=== PATIENT | female | born 1995 | race Caucasian/White ===

== ENCOUNTER 2016-11-18 19:08 | Emergency (ER) | payer OTHER ==
--- NOTE | 2016-11-18 19:50 | EDM.PDOC ---
ED HPI Trauma - General Chief Complaint: Lower Extremity Injury/Pain Stated Complaint: PT HURT RT LEG Time Seen by Provider: 11/18/16 19:42 - History of Present Illness INITIAL COMMENTS - FREE TEXT/NARRATIVE: HISTORY AND PHYSICAL: History of present illness: The patient is a 21-year-old female who presents with right leg pain that started yesterday while she was working. 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 She's it is mostly centered around her anterior right knee but also travels up the medial thigh and down the calf. Patient says that she has not noticed any redness or swelling to the leg she has had no systemic complaints of fever chills chest pain shortness of breath vomiting or diarrhea. Patient is not a smoker but she does take oral control. Patient denies any sedentary behavior. Review of systems: As per history of present illness and below otherwise all systems reviewed and negative. Past medical history: As per history of present illness and as reviewed below otherwise noncontributory. Surgical history: As per history of present illness and as reviewed below otherwise noncontributory. Social history: No reported history of drug or alcohol abuse. Family history: As per history of present illness and as reviewed below otherwise noncontributory. Physical exam: General: Well-developed well-nourished female who is overweight and nontoxic appearing vital signs of been reviewed by me HEENT: Atraumatic, normocephalic, negative for conjunctival pallor or scleral icterus, mucous membranes moist, throat clear, neck supple, nontender, trachea midline. Lungs: Clear to auscultation, breath sounds equal bilaterally, chest nontender. Heart: S1S2, regular, negative for clicks, rubs, or JVD. Abdomen: Soft, nondistended, nontender. NABS Pelvis: Stable nontender. Genitourinary: Deferred. Rectal: Deferred. Extremities: Atraumatic, no pedal edema or leg asymmetry but there is some tenderness at palpation of the anterior right knee without any joint effusion warmth or erythema, legs are negative for cords or calf pain. Neurovascular unremarkable. There is some diffuse anterior thigh discomfort soft tissue palpation but again no palpable masses are appreciated or cords. There is no bony hip ankle or foot tenderness at all the joints are without tenderness swelling or deformities Neuro: Awake, alert, oriented. Cranial nerves II through XII unremarkable. Cerebellum unremarkable. Motor and sensory unremarkable throughout. Exam nonfocal. Diagnostics: X-ray right knee, Doppler ultrasound of right leg Therapeutics: Toradol Impression: Right leg/knee pain stable Definitive disposition and diagnosis as appropriate pending reevaluation and review of above. Allergies/ADRs: Allergies No Known Allergies Allergy (Verified 11/18/16 19:24) Home Medications: Ambulatory Orders . 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 Musculoskeletal History: Reports: None Neurological History: Reports: None Psychiatric History: Reports: None Endocrine/Metabolic History: Reports: None Hematologic History: Reports: None Immunologic History: Reports: None Oncologic (Cancer) History: Reports: None Dermatologic History: Reports: None - Infectious Disease History Infectious Disease History: Reports: None - Past Surgical History Head Surgeries/Procedures: Reports: None HEENT Surgical History: Reports: Oral surgery Social & Family History - Family History Family Medical History: Noncontributory Endocrine/Metabolic: Reports: Diabetes, type II - Tobacco Use Smoking Status *Q: Never Smoker Second Hand Smoke Exposure: No - Caffeine Use Caffeine Use: Reports: Coffee - Alcohol Use Days Per Week of Alcohol Use: 0 - Recreational Drug Use Recreational Drug Use: No - Living Situation & Occupation Living situation: Reports: with significant other Occupation: employed Review of Systems - Review of Systems Review Of Systems: ROS reveals no pertinent complaints other than HPI. Trauma Exam - Physical Exam Exam: See Below (See dictation) Course - Vital Signs Last Recorded V/S: Last Vital Signs Temp 36.4 C 11/18/16 19:25 Pulse 94 11/18/16 19:25 Resp 16 11/18/16 19:25 BP 116/62 11/18/16 19:25 Pulse Ox 96 11/18/16 19:25 - Orders/Labs/Meds Orders: Active Orders 24 hr Category Date Time Status Knee 3V Rt [CR] Stat Exams 11/18/16 19:46 Taken Venous Doppler Lwr Ext Rt [US] Stat Exams 11/18/16 19:46 Taken Meds: Medications Discontinued Medications Generic Name Dose Route Start Last Admin Trade Name Casimiro PRN Reason Stop Dose Admin Ketorolac Tromethamine 60 mg 11/18/16 19:46 11/18/16 19:56 Toradol IM 11/18/16 19:47 60 mg ONETIME ONE Administration Departure - Departure Time of Disposition: 21:43 Disposition: Home, Self-Care 01 Condition: good Clinical Impression: Pain of right knee and lower leg Forms: ED Department Discharge Additional Instructions: The following information is given to patients seen in the emergency department who are being discharged to home. This information is to outline your options for follow-up care. We provide all patients seen in our emergency department with a follow-up referral. The need for follow-up, as well as the timing and circumstances, are variable depending upon the specifics of your emergency department visit. If you don't have a primary care physician on staff, we will provide you with a referral. We always advise you to contact your personal physician following an emergency department visit to inform them of the circumstance of the visit and for follow-up with them and/or the need for any referrals to a consulting specialist. The emergency department will also refer you to a specialist when appropriate. This referral assures that you have the opportunity for followup care with a specialist. All of these measure are taken in an effort to provide you with optimal care, which includes your followup. Under all circumstances we always encourage you to contact your private physician who remains a resource for coordinating your care. When calling for followup care, please make the office aware that this follow-up is from your recent emergency room visit. If for any reason you are refused follow-up, please contact the [facility] emergency department at and ask to speak to the emergency department charge nurse. [facility] Primary care- Internal Medicine and Family [facility] [address] [place] [id number] [facility] Specialty Care--Orthopedic clinic Professional Building [address] [place] [id number] Ice and elevate after work, use ibuprofen/Motrin for pain and please call and followup. Return here as needed and as discussed - My Orders Last 24 Hours: My Active Orders 11/18/16 19:46 Knee 3V Rt [CR] Stat Venous Doppler Lwr Ext Rt [US] Stat - Assessment/Plan Last 24 Hours: My Active Orders 11/18/16 19:46 Knee 3V Rt [CR] Stat Venous Doppler Lwr Ext Rt [US] Stat
[2016-11-18] MEDS: Ketorolac 60 MG/2 ML SDV IM ONE (19:56)
[2016-11-18 23:07] VITALS: BP 125/72
--- NOTE | 2016-11-19 14:09 | US ---
EXAM DATE: 11/18/16 PATIENT'S AGE: 21 Patient: DARIN JONES Facility: [place], [place] Site . Site : 1995 Study: US Extremity Right [id number]/16/2017 8:55:43 PM Ordering Physician: Mandy Marquez Final Report: INDICATION: Right leg pain and swelling COMPARISON: None. TECHNIQUE: A compression venous ultrasound exam was performed of the right lower extremity using owen-scale imaging, color Doppler and spectral Doppler analysis. FINDINGS: Sonographic imaging of the right lower extremity demonstrates normal compressibility and color Doppler venous blood flow within the common femoral vein, deep femoral vein, and the proximal greater saphenous vein. Within the thigh, the femoral vein is patent and compressible. At a lower level, the popliteal and posterior tibial veins also show normal compressibility and color Doppler venous blood flow. IMPRESSION: Normal venous ultrasound exam. No evidence of deep vein thrombosis within the right lower extremity. Dictated by Vipul Tai MD @ Nov 18 2016 8:55PM (Electronic Signature) Report Signed by Proxy and Original Signed Document filed in the Medical Record. CYRILD
--- NOTE | 2016-11-19 14:10 | CR ---
EXAM DATE: 11/18/16 PATIENT'S AGE: 21 Patient: DARIN JONES Facility: [place], [place] Site . Site : 1995 Study: XRay Knee Right [id number]/16/2017 8:56:01 PM Ordering Physician: Mandy Marquez Final Report: INDICATION: Right knee pain COMPARISON: none TECHNIQUE: Three-view right knee FINDINGS: The bones are anatomically aligned. There is no evidence of fracture, erosion or intrinsic bone lesion. The soft tissues appear normal. IMPRESSION: Negative right knee. Dictated by Vipul Tai MD @ Nov 18 2016 8:58PM (Electronic Signature) Report Signed by Proxy and Original Signed Document filed in the Medical Record. MTDD
== END 2016-11-18 22:15 | disposition home or self-care (01) ==
LOC: MW.ED 19:08
DX: M25.561 Pain in right knee (principal); Z98.890 Other specified postprocedural states
CPT/HCPCS: 73562; 93971; 96374; 99284; J1885; 99283

== ENCOUNTER → 2016-12-03 | Outpatient (CLI) | payer MEDICAID | LOC: MW.CHOBGYN 10:01 | PROVIDERS: ATTEND Nurse Practitioner Women's Health | DX: Z11.3 Encounter for screening for infections with a predominantly sexual mode of transmission (principal) | CPT/HCPCS: 36415; 86592; 87389; 87491; 87591 ==

== ENCOUNTER 2017-03-07 15:27 | Emergency (ER) | payer MEDICAID ==
[2017-03-07] MEDS ORDERED: Sodium Chloride 0.9% 1,000 ML IV ONE (16:55)
[2017-03-07] MEDS ORDERED: Ketorolac 30 MG/ML SDV IVPUSH ONE (16:55)
--- NOTE | 2017-03-07 17:34 | EDM.PDOC ---
ED HPI GENERAL MEDICAL PROBLEM - General Chief Complaint: Abdominal Pain Stated Complaint: ABDOMINAL PAIN Time Seen by Provider: 03/07/17 17:33 Source of Information: Reports: Patient History Limitations: Reports: No Limitations - History of Present Illness INITIAL COMMENTS - FREE TEXT/NARRATIVE: History of present illness: [21-year-old female comes in complaining of lower abdominal pain. Patient indicates that she does have unprotected sex but does not feel she is . Patient indicates that the pain has gotten progressively worse over last 3 weeks thought it was due to her menstrual cycle but that has completed and the pain continues unabated comes in today for further evaluation and workup.] Review of systems: As per history of present illness and below otherwise all systems reviewed and negative. Past medical history: As per history of present illness and as reviewed below otherwise noncontributory. Surgical history: As per history of present illness and as reviewed below otherwise noncontributory. Social history: No reported history of drug or alcohol abuse. Family history: As per history of present illness and as reviewed below otherwise noncontributory. Physical exam: HEENT: Atraumatic, normocephalic, pupils reactive, negative for conjunctival pallor or scleral icterus, mucous membranes moist, throat clear, neck supple, nontender, trachea midline. Lungs: Clear to auscultation, breath sounds equal bilaterally, chest nontender. Heart: S1S2, regular, negative for clicks, rubs, or JVD. Abdomen: Protuberant soft distended abdomen with low suprapubic tenderness. Negative for masses or hepatosplenomegaly. Negative for costovertebral tenderness. Pelvis: Stable nontender. Genitourinary: Deferred. Rectal: Deferred. Extremities: Atraumatic, negative for cords or calf pain. Neurovascular unremarkable. Neuro: Awake, alert, oriented. Cranial nerves II through XII unremarkable. Cerebellum unremarkable. Motor and sensory unremarkable throughout. Exam nonfocal. Diagnostics: [Urine , UA, CBC, CMP] Therapeutics: [Toradol] Impression: [Constipation] Plan: [Mag citrate] Definitive disposition and diagnosis as appropriate pending reevaluation and review of above. Lower Abdominal Pain Score (Numeric/FACES): 8 - Related Data Allergies Allergy/AdvReac Type Severity Reaction Status Date / Time No Known Allergies Allergy Verified 03/07/17 16:02 Home Meds: Home Meds . 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 Musculoskeletal History: Reports: None Neurological History: Reports: None Psychiatric History: Reports: None Endocrine/Metabolic History: Reports: None Hematologic History: Reports: None Immunologic History: Reports: None Oncologic (Cancer) History: Reports: None Dermatologic History: Reports: None - Infectious Disease History Infectious Disease History: Reports: Influenza - Past Surgical History Head Surgeries/Procedures: Reports: None HEENT Surgical History: Reports: Oral Surgery Social & Family History - Family History Family Medical History: Noncontributory Endocrine/Metabolic: Reports: Diabetes, type II - Tobacco Use Smoking Status *Q: Never Smoker Second Hand Smoke Exposure: No - Caffeine Use Caffeine Use: Reports: Coffee - Alcohol Use Days Per Week of Alcohol Use: 0 - Recreational Drug Use Recreational Drug Use: No - Living Situation & Occupation Living situation: Reports: with Significant Other Occupation: Employed ED ROS GENERAL - Review of Systems Review Of Systems: See Below (The history of present illness) ED EXAM, GI/ABD - Physical Exam Exam: See Below (History of present illness) Course - Vital Signs Last Recorded V/S: Last Vital Signs Temp 36.4 C 03/07/17 16:03 Pulse 77 03/07/17 16:03 Resp 16 03/07/17 16:03 BP 130/67 03/07/17 16:03 Pulse Ox 98 03/07/17 16:03 - Orders/Labs/Meds Orders: Active Orders 24 hr Category Date Time Status Abdomen 1V Upright [CR] Stat Exams 03/07/17 18:26 Ordered Labs: Laboratory Tests 03/07/17 03/07/17 03/07/17 Range/Units 16:10 16:10 17:17 WBC 9.21 (4.0-11.0) K/uL RBC 4.10 L (4.30-5.90) M/uL Hgb 12.2 (12.0-16.0) g/dL Hct 36.9 (36.0-46.0) % MCV 90.0 (80.0-98.0) fL MCH 29.8 (27.0-32.0) pg MCHC 33.1 (31.0-37.0) g/dL RDW Std Deviation 40.7 (28.0-62.0) fl RDW Coeff of Jr 13 (11.0-15.0) % Plt Count 352 (150-400) K/uL MPV 9.30 (7.40-12.00) fL Neut % (Auto) 48.4 (48.0-80.0) % Lymph % (Auto) 44.4 H (16.0-40.0) % Garrard % (Auto) 5.9 (0.0-15.0) % Eos % (Auto) 1.0 (0.0-7.0) % Baso % (Auto) 0.3 (0.0-1.5) % Neut # (Auto) 4.5 (1.4-5.7) K/uL Lymph # (Auto) 4.1 H (0.6-2.4) K/uL Garrard # (Auto) 0.5 (0.0-0.8) K/uL Eos # (Auto) 0.1 (0.0-0.7) K/uL Baso # (Auto) 0.0 (0.0-0.1) K/uL Nucleated RBC % 0.0 /100WBC Nucleated RBCs # 0 K/uL Sodium (136-146) mmol/L Potassium (3.5-5.1) mmol/L Chloride (98-110) mmol/L Carbon Dioxide (21-31) mmol/L BUN (6.0-23.0) mg/dL Creatinine (0.6-1.5) mg/dL Est Cr Clr Drug Dosing mL/min Estimated GFR (MDRD) ml/min Glucose (60-110) mg/dL Calcium (8.8-10.8) mg/dL Total Bilirubin (0.1-1.5) mg/dL AST (5-40) IU/L ALT (8-54) IU/L Alkaline Phosphatase (40-150) Total Protein (6.0-8.0) g/dL Albumin (3.5-5.0) g/dL Globulin (2.0-3.5) g/dL Albumin/Globulin Ratio (1.3-2.8) Amylase (10-90) U/L Lipase (7-80) U/L Urine Color YELLOW Urine Appearance CLEAR Urine pH 6.0 (5.0-8.0) Ur Specific Harper 1.025 (1.001-1.035) Urine Protein NEGATIVE (NEGATIVE) mg/dL Urine Glucose (UA) NEGATIVE (NEGATIVE) mg/dL Urine Ketones NEGATIVE (NEGATIVE) mg/dL Urine Occult Blood TRACE-INTACT (NEGATIVE) Urine Nitrite NEGATIVE (NEGATIVE) Urine Bilirubin NEGATIVE (NEGATIVE) Urine Urobilinogen 0.2 (<2.0) EU/dL Ur Leukocyte Esterase NEGATIVE (NEGATIVE) Urine RBC 0-2 (0-2/HPF) Urine WBC 0-1 (0-5/HPF) Ur Epithelial Cells OCCASIONAL (NONE-FEW) Urine Bacteria FEW (NEGATIVE) Urine Mucus LIGHT (NONE-MOD) Urine HCG, Qual NEGATIVE (NEGATIVE) 03/07/17 Range/Units 17:17 WBC (4.0-11.0) K/uL RBC (4.30-5.90) M/uL Hgb (12.0-16.0) g/dL Hct (36.0-46.0) % MCV (80.0-98.0) fL MCH (27.0-32.0) pg MCHC (31.0-37.0) g/dL RDW Std Deviation (28.0-62.0) fl RDW Coeff of Jr (11.0-15.0) % Plt Count (150-400) K/uL MPV (7.40-12.00) fL Neut % (Auto) (48.0-80.0) % Lymph % (Auto) (16.0-40.0) % Garrard % (Auto) (0.0-15.0) % Eos % (Auto) (0.0-7.0) % Baso % (Auto) (0.0-1.5) % Neut # (Auto) (1.4-5.7) K/uL Lymph # (Auto) (0.6-2.4) K/uL Garrard # (Auto) (0.0-0.8) K/uL Eos # (Auto) (0.0-0.7) K/uL Baso # (Auto) (0.0-0.1) K/uL Nucleated RBC % /100WBC Nucleated RBCs # K/uL Sodium 138 (136-146) mmol/L Potassium 4.0 (3.5-5.1) mmol/L Chloride 106 (98-110) mmol/L Carbon Dioxide 22 (21-31) mmol/L BUN 13 (6.0-23.0) mg/dL Creatinine 0.7 (0.6-1.5) mg/dL Est Cr Clr Drug Dosing 128.24 mL/min Estimated GFR (MDRD) > 60.0 ml/min Glucose 79 (60-110) mg/dL Calcium 9.9 (8.8-10.8) mg/dL Total Bilirubin 0.2 (0.1-1.5) mg/dL AST 16 (5-40) IU/L ALT 10 (8-54) IU/L Alkaline Phosphatase 93 (40-150) Total Protein 8.2 H (6.0-8.0) g/dL Albumin 4.2 (3.5-5.0) g/dL Globulin 4.0 H (2.0-3.5) g/dL Albumin/Globulin Ratio 1.1 L (1.3-2.8) Amylase 67 (10-90) U/L Lipase 25 (7-80) U/L Urine Color Urine Appearance Urine pH (5.0-8.0) Ur Specific Harper (1.001-1.035) Urine Protein (NEGATIVE) mg/dL Urine Glucose (UA) (NEGATIVE) mg/dL Urine Ketones (NEGATIVE) mg/dL Urine Occult Blood (NEGATIVE) Urine Nitrite (NEGATIVE) Urine Bilirubin (NEGATIVE) Urine Urobilinogen (<2.0) EU/dL Ur Leukocyte Esterase (NEGATIVE) Urine RBC (0-2/HPF) Urine WBC (0-5/HPF) Ur Epithelial Cells (NONE-FEW) Urine Bacteria (NEGATIVE) Urine Mucus (NONE-MOD) Urine HCG, Qual (NEGATIVE) Meds: Medications Discontinued Medications Generic Name Dose Route Start Last Admin Trade Name Freq PRN Reason Stop Dose Admin Sodium Chloride 1,000 mls @ 999 mls/hr 03/07/17 16:55 03/07/17 17:16 Normal Saline IV 03/07/17 17:55 Not Given STAT ONE Ketorolac Tromethamine 30 mg 03/07/17 16:55 03/07/17 17:16 Toradol IVPUSH 03/07/17 16:56 Not Given ONETIME ONE Departure - Departure Time of Disposition: 19:28 Disposition: Home, Self-Care 01 Condition: Good Clinical Impression: Abdominal pain - Discharge Information Forms: ED Department Discharge Additional Instructions: The following information is given to patients seen in the emergency department who are being discharged to home. This information is to outline your options for follow-up care. We provide all patients seen in our emergency department with a follow-up referral. The need for follow-up, as well as the timing and circumstances, are variable depending upon the specifics of your emergency department visit. If you don't have a primary care physician on staff, we will provide you with a referral. We always advise you to contact your personal physician following an emergency department visit to inform them of the circumstance of the visit and for follow-up with them and/or the need for any referrals to a consulting specialist. The emergency department will also refer you to a specialist when appropriate. This referral assures that you have the opportunity for follow-up care with a specialist. All of these measure are taken in an effort to provide you with optimal care, which includes your follow-up. Under all circumstances we always encourage you to contact your private physician who remains a resource for coordinating your care. When calling for follow-up care, please make the office aware that this follow-up is from your recent emergency room visit. If for any reason you are refused follow-up, please contact the [facility] Emergency Department at and asked to speak to the emergency department charge nurse. Take medication as directed Follow-up with PCP in 1-2 days Return to ED as needed as discussed [facility] Primary Care [address] [place] [phone] - My Orders Last 24 Hours: My Active Orders 03/07/17 18:26 Abdomen 1V Upright [CR] Stat - Assessment/Plan Last 24 Hours: My Active Orders 03/07/17 18:26 Abdomen 1V Upright [CR] Stat
[2017-03-07 18:12] LABS: CHLORIDE,CL 106 mmol/L (98-110); SODIUM,NA 138 mmol/L (136-146)
[2017-03-07 19:36] VITALS: BP 125/72
--- NOTE | 2017-03-09 14:36 | CR ---
EXAM DATE: 03/07/17 PATIENT'S AGE: 21 Patient: ORAL JONES Facility: [place], [place] Site . Site : 1995 Study: XRay Abdomen [id number]/3/2017 7:01:44 PM Ordering Physician: Doctor Carpio Final Report: INDICATION: Abdominal pain, upper pelvic region. TECHNIQUE: 2 upright AP views of the abdomen. IMPRESSION : The bowel gas pattern is nonobstructive. Mild volume of colonic stool. No pathologic abdominal calcifications. Dictated by Max Garcia MD @ 03/07/2017 7:24:44 PM Dictated by: Max Garcia MD @ 03/07/2017 19:24:52 (Electronic Signature) Report Signed by Proxy. ALESSIA
== END 2017-03-07 19:36 | disposition home or self-care (01) ==
LOC: MW.ED 15:27
DX: K59.00 Constipation, unspecified (principal)
CPT/HCPCS: 36415; 74000; 74000-26; 80053; 81001; 81025; 82150; 83690; 85025; 99282; 99283

== ENCOUNTER 2017-03-15 22:54 | Emergency (ER) | payer MEDICAID ==
[2017-03-16 00:29] LABS: CHLORIDE,CL 106 mmol/L (98-110); SODIUM,NA 138 mmol/L (136-146)
--- NOTE | 2017-03-16 01:23 | EDM.PDOC ---
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 Stated Complaint: ABDOMINAL PAIN Time Seen by Provider: 03/16/17 01:21 Source of Information: Reports: Patient - History of Present Illness INITIAL COMMENTS - FREE TEXT/NARRATIVE: HISTORY AND PHYSICAL: History of present illness: She presents with complaint of abdominal pain however after further questioning she is concerned about as she has had 2 positive home results, she is requesting an ultrasound On our testing she is hCG negative, she is not in any pain she is lying in bed comfortably sleeping with benign abdominal exam denies any vaginal bleeding fluid leak which low back pain no fever nausea vomiting chills sweats LMP 02/27/2017 Review of systems: As per history of present illness and below otherwise all systems reviewed and negative. Past medical history: As per history of present illness and as reviewed below otherwise noncontributory. Surgical history: As per history of present illness and as reviewed below otherwise noncontributory. Social history: No reported history of drug or alcohol abuse. Family history: As per history of present illness and as reviewed below otherwise noncontributory. Physical exam: HEENT: Atraumatic, normocephalic, pupils reactive, negative for conjunctival pallor or scleral icterus, mucous membranes moist, throat clear, neck supple, nontender, trachea midline. Lungs: Clear to auscultation, breath sounds equal bilaterally, chest nontender. Heart: S1S2, regular, negative for clicks, rubs, or JVD. Abdomen: Soft, nondistended, nontender. Negative for masses or hepatosplenomegaly. Negative for costovertebral tenderness. Pelvis: Stable nontender. Genitourinary: Deferred. Rectal: Deferred. Extremities: Atraumatic, negative for cords or calf pain. Neurovascular unremarkable. Neuro: Awake, alert, oriented. Cranial nerves II through XII unremarkable. Cerebellum unremarkable. Motor and sensory unremarkable throughout. Exam nonfocal. Diagnostics: []CBC, CMP, UA, hCG quantitative and qualitative. negative Therapeutics: []None Impression: []Worried well Non Definitive disposition and diagnosis as appropriate pending reevaluation and review of above. Lower Abdomen Pain Score (Numeric/FACES): 10 - Related Data Allergies Allergy/AdvReac Type Severity Reaction Status Date / Time No Known Allergies Allergy Verified 03/15/17 23:28 Home Meds: Home Meds . 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 Musculoskeletal History: Reports: None Neurological History: Reports: None Psychiatric History: Reports: None Endocrine/Metabolic History: Reports: None Hematologic History: Reports: None Immunologic History: Reports: None Oncologic (Cancer) History: Reports: None Dermatologic History: Reports: None - Infectious Disease History Infectious Disease History: Reports: Influenza - Past Surgical History Head Surgeries/Procedures: Reports: None HEENT Surgical History: Reports: Oral Surgery Social & Family History - Family History Family Medical History: Noncontributory Endocrine/Metabolic: Reports: Diabetes, type II - Tobacco Use Smoking Status *Q: Never Smoker Second Hand Smoke Exposure: No - Caffeine Use Caffeine Use: Reports: Coffee - Alcohol Use Days Per Week of Alcohol Use: 1 Number of Drinks Per Day: 2 Total Drinks Per Week: 2 - Recreational Drug Use Recreational Drug Use: No - Living Situation & Occupation Living situation: Reports: with Significant Other Occupation: Employed ED ROS GENERAL - Review of Systems Review Of Systems: ROS reveals no pertinent complaints other than HPI. ED EXAM, GENERAL - Physical Exam Exam: See Below Course - Vital Signs Last Recorded V/S: Last Vital Signs Temp 36.1 C 03/15/17 23:24 Pulse 86 03/16/17 00:42 Resp 18 03/16/17 00:42 BP 123/67 03/16/17 00:42 Pulse Ox 100 03/16/17 00:42 - Orders/Labs/Meds Labs: Laboratory Tests 03/15/17 03/15/17 03/15/17 Range/Units 23:30 23:39 23:39 WBC 9.51 (4.0-11.0) K/uL RBC 3.77 L (4.30-5.90) M/uL Hgb 11.3 L (12.0-16.0) g/dL Hct 34.1 L (36.0-46.0) % MCV 90.5 (80.0-98.0) fL MCH 30.0 (27.0-32.0) pg MCHC 33.1 (31.0-37.0) g/dL RDW Std Deviation 41.6 (28.0-62.0) fl RDW Coeff of Jr 13 (11.0-15.0) % Plt Count 338 (150-400) K/uL MPV 9.10 (7.40-12.00) fL Neut % (Auto) 51.1 (48.0-80.0) % Lymph % (Auto) 41.2 H (16.0-40.0) % [place] % (Auto) 6.3 (0.0-15.0) % Eos % (Auto) 1.2 (0.0-7.0) % Baso % (Auto) 0.2 (0.0-1.5) % Neut # (Auto) 4.9 (1.4-5.7) K/uL Lymph # (Auto) 3.9 H (0.6-2.4) K/uL [place] # (Auto) 0.6 (0.0-0.8) K/uL Eos # (Auto) 0.1 (0.0-0.7) K/uL Baso # (Auto) 0.0 (0.0-0.1) K/uL Nucleated RBC % 0.0 /100WBC Nucleated RBCs # 0 K/uL Sodium 138 (136-146) mmol/L Potassium 4.0 (3.5-5.1) mmol/L Chloride 106 (98-110) mmol/L Carbon Dioxide 26 (21-31) mmol/L BUN 16 (6.0-23.0) mg/dL Creatinine 0.8 (0.6-1.5) mg/dL Est Cr Clr Drug Dosing 112.21 mL/min Estimated GFR (MDRD) > 60.0 ml/min Glucose 109 (60-110) mg/dL Calcium 9.3 (8.8-10.8) mg/dL Total Bilirubin 0.2 (0.1-1.5) mg/dL AST 14 (5-40) IU/L ALT 10 (8-54) IU/L Alkaline Phosphatase 77 (40-150) Total Protein 7.3 (6.0-8.0) g/dL Albumin 3.9 (3.5-5.0) g/dL Globulin 3.4 (2.0-3.5) g/dL Albumin/Globulin Ratio 1.2 L (1.3-2.8) HCG, Qual (NEG) HCG, Quant mIU/mL Urine Color YELLOW Urine Appearance CLEAR Urine pH 7.0 (5.0-8.0) Ur Specific [place] 1.015 (1.001-1.035) Urine Protein NEGATIVE (NEGATIVE) mg/dL Urine Glucose (UA) NEGATIVE (NEGATIVE) mg/dL Urine Ketones NEGATIVE (NEGATIVE) mg/dL Urine Occult Blood NEGATIVE (NEGATIVE) Urine Nitrite NEGATIVE (NEGATIVE) Urine Bilirubin NEGATIVE (NEGATIVE) Urine Urobilinogen 0.2 (<2.0) EU/dL Ur Leukocyte Esterase NEGATIVE (NEGATIVE) Urine RBC 0-1 (0-2/HPF) Urine WBC 0-1 (0-5/HPF) Ur Epithelial Cells FEW (NONE-FEW) Urine Bacteria FEW (NEGATIVE) Blood Type 03/15/17 03/15/17 03/15/17 Range/Units 23:39 23:39 23:45 WBC (4.0-11.0) K/uL RBC (4.30-5.90) M/uL Hgb (12.0-16.0) g/dL Hct (36.0-46.0) % MCV (80.0-98.0) fL MCH (27.0-32.0) pg MCHC (31.0-37.0) g/dL RDW Std Deviation (28.0-62.0) fl RDW Coeff of Jr (11.0-15.0) % Plt Count (150-400) K/uL MPV (7.40-12.00) fL Neut % (Auto) (48.0-80.0) % Lymph % (Auto) (16.0-40.0) % [place] % (Auto) (0.0-15.0) % Eos % (Auto) (0.0-7.0) % Baso % (Auto) (0.0-1.5) % Neut # (Auto) (1.4-5.7) K/uL Lymph # (Auto) (0.6-2.4) K/uL [place] # (Auto) (0.0-0.8) K/uL Eos # (Auto) (0.0-0.7) K/uL Baso # (Auto) (0.0-0.1) K/uL Nucleated RBC % /100WBC Nucleated RBCs # K/uL Sodium (136-146) mmol/L Potassium (3.5-5.1) mmol/L Chloride (98-110) mmol/L Carbon Dioxide (21-31) mmol/L BUN (6.0-23.0) mg/dL Creatinine (0.6-1.5) mg/dL Est Cr Clr Drug Dosing mL/min Estimated GFR (MDRD) ml/min Glucose (60-110) mg/dL Calcium (8.8-10.8) mg/dL Total Bilirubin (0.1-1.5) mg/dL AST (5-40) IU/L ALT (8-54) IU/L Alkaline Phosphatase (40-150) Total Protein (6.0-8.0) g/dL Albumin (3.5-5.0) g/dL Globulin (2.0-3.5) g/dL Albumin/Globulin Ratio (1.3-2.8) HCG, Qual NEGATIVE (NEG) HCG, Quant < 1.2 mIU/mL Urine Color Urine Appearance Urine pH (5.0-8.0) Ur Specific [place] (1.001-1.035) Urine Protein (NEGATIVE) mg/dL Urine Glucose (UA) (NEGATIVE) mg/dL Urine Ketones (NEGATIVE) mg/dL Urine Occult Blood (NEGATIVE) Urine Nitrite (NEGATIVE) Urine Bilirubin (NEGATIVE) Urine Urobilinogen (<2.0) EU/dL Ur Leukocyte Esterase (NEGATIVE) Urine RBC (0-2/HPF) Urine WBC (0-5/HPF) Ur Epithelial Cells (NONE-FEW) Urine Bacteria (NEGATIVE) Blood Type A POSITIVE Departure - Departure Time of Disposition: 01:22 Disposition: Home, Self-Care 01 Condition: Good Clinical Impression: Encounter for medical screening examination - Discharge Information Forms: ED Department Discharge Additional Instructions: The following information is given to patients seen in the emergency department who are being discharged to home. This information is to outline your options for follow-up care. We provide all patients seen in our emergency department with a follow-up referral. The need for follow-up, as well as the timing and circumstances, are variable depending upon the specifics of your emergency department visit. If you don't have a primary care physician on staff, we will provide you with a referral. We always advise you to contact your personal physician following an emergency department visit to inform them of the circumstance of the visit and for follow-up with them and/or the need for any referrals to a consulting specialist. The emergency department will also refer you to a specialist when appropriate. This referral assures that you have the opportunity for follow-up care with a specialist. All of these measure are taken in an effort to provide you with optimal care, which includes your follow-up. Under all circumstances we always encourage you to contact your private physician who remains a resource for coordinating your care. When calling for follow-up care, please make the office aware that this follow-up is from your recent emergency room visit. If for any reason you are refused follow-up, please contact the [facility] emergency department at and asked to speak to the emergency department charge nurse.
[2017-03-16 01:39] VITALS: BP 134/87
== END 2017-03-16 01:39 | disposition home or self-care (01) ==
LOC: MW.ED 22:54
DX: Z00.00 Encounter for general adult medical examination without abnormal findings (principal); Z98.890 Other specified postprocedural states
CPT/HCPCS: 36415; 80053; 81001; 84702; 84703; 85025; 86900; 86901; 99282; 99284

== ENCOUNTER 2017-04-20 22:37 | Emergency (ER) | payer MEDICAID ==
[2017-04-20] MEDS ORDERED: Ketorolac 60 MG/2 ML SDV IM ONE (23:06)
--- NOTE | 2017-04-20 23:09 | EDM.PDOC ---
ED HPI GENERAL MEDICAL PROBLEM - General Chief Complaint: Abdominal Pain Stated Complaint: STOMACH PAIN Time Seen by Provider: 04/20/17 23:03 - History of Present Illness INITIAL COMMENTS - FREE TEXT/NARRATIVE: HISTORY AND PHYSICAL: History of present illness: Patient is 21-year-old black female presents concern of right upper quadrant abdominal pain off and on times several months this seems to be postprandial she denies any trauma fever chills nausea vomiting or other complaints. Review of systems: As per history of present illness and below otherwise all systems reviewed and negative. Past medical history: As per history of present illness and as reviewed below otherwise noncontributory. Surgical history: As per history of present illness and as reviewed below otherwise noncontributory. Social history: No reported history of drug or alcohol abuse. Family history: As per history of present illness and as reviewed below otherwise noncontributory. Physical exam: HEENT: Atraumatic, normocephalic, pupils reactive, negative for conjunctival pallor or scleral icterus, mucous membranes moist, throat clear, neck supple, nontender, trachea midline. Lungs: Clear to auscultation, breath sounds equal bilaterally, chest nontender. Heart: S1S2, regular, negative for clicks, rubs, or JVD. Abdomen: Soft, nondistended, mild tenderness in the right upper quadrant to deep palpation no rebound no guarding. Negative for masses or hepatosplenomegaly. Negative for costovertebral tenderness. Pelvis: Stable nontender. Genitourinary: Deferred. Rectal: Deferred. Extremities: Atraumatic, negative for cords or calf pain. Neurovascular unremarkable. Neuro: Awake, alert, oriented. Cranial nerves II through XII unremarkable. Cerebellum unremarkable. Motor and sensory unremarkable throughout. Exam nonfocal. Diagnostics: CBC CMP lipase hCG Therapeutics: Toradol 60 mg IM Impression: #1 chronic intermittent right upper quadrant abdominal pain rule out biliary colic Definitive disposition and diagnosis as appropriate pending reevaluation and review of above. Right Upper Abdomen Pain Score (Numeric/FACES): 9 - Related Data Allergies Allergy/AdvReac Type Severity Reaction Status Date / Time No Known Allergies Allergy Verified 03/15/17 23:28 Home Meds: Home Meds . 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 Musculoskeletal History: Reports: None Neurological History: Reports: None Psychiatric History: Reports: None Endocrine/Metabolic History: Reports: None Hematologic History: Reports: None Immunologic History: Reports: None Oncologic (Cancer) History: Reports: None Dermatologic History: Reports: None - Infectious Disease History Infectious Disease History: Reports: Influenza - Past Surgical History Head Surgeries/Procedures: Reports: None HEENT Surgical History: Reports: Oral Surgery Social & Family History - Family History Family Medical History: Noncontributory Endocrine/Metabolic: Reports: Diabetes, type II - Tobacco Use Smoking Status *Q: Never Smoker Second Hand Smoke Exposure: No - Caffeine Use Caffeine Use: Reports: Coffee - Alcohol Use Days Per Week of Alcohol Use: 1 Number of Drinks Per Day: 2 Total Drinks Per Week: 2 - Recreational Drug Use Recreational Drug Use: No - Living Situation & Occupation Living situation: Reports: with Significant Other Occupation: Employed ED ROS GENERAL - Review of Systems Review Of Systems: ROS reveals no pertinent complaints other than HPI. ED EXAM, GENERAL - Physical Exam Exam: See Below (See dictation) Course - Vital Signs Last Recorded V/S: Last Vital Signs Temp 36.6 C 04/20/17 22:49 Pulse 88 04/20/17 22:49 Resp 16 04/20/17 22:49 BP 128/69 04/20/17 22:49 Pulse Ox 99 04/20/17 22:49 - Orders/Labs/Meds Orders: Active Orders 24 hr Category Date Time Status CBC WITH AUTO DIFF [HEME] Stat Lab 04/20/17 23:05 Ordered COMPREHENSIVE METABOLIC PN,CMP [CHEM] Stat Lab 04/20/17 23:05 Ordered HCG QUALITATIVE,SERUM [CHEM] Stat Lab 04/20/17 23:06 Ordered INR,PT,PROTHROMBIN TIME [COAG] Stat Lab 04/20/17 23:05 Ordered LIPASE [CHEM] Stat Lab 04/20/17 23:05 Ordered Ketorolac [Toradol] Med 04/20/17 23:06 Once 60 mg IM ONETIME ONE Departure - Departure Time of Disposition: 23:08 Disposition: Home, Self-Care 01 Condition: Good Clinical Impression: Abdominal pain - Discharge Information Forms: ED Department Discharge Additional Instructions: The following information is given to patients seen in the emergency department who are being discharged to home. This information is to outline your options for follow-up care. We provide all patients seen in our emergency department with a follow-up referral. The need for follow-up, as well as the timing and circumstances, are variable depending upon the specifics of your emergency department visit. If you don't have a primary care physician on staff, we will provide you with a referral. We always advise you to contact your personal physician following an emergency department visit to inform them of the circumstance of the visit and for follow-up with them and/or the need for any referrals to a consulting specialist. The emergency department will also refer you to a specialist when appropriate. This referral assures that you have the opportunity for followup care with a specialist. All of these measure are taken in an effort to provide you with optimal care, which includes your followup. Under all circumstances we always encourage you to contact your private physician who remains a resource for coordinating your care. When calling for followup care, please make the office aware that this follow-up is from your recent emergency room visit. If for any reason you are refused follow-up, please contact the [facility] emergency department at and asked to speak to the emergency department charge nurse. [facility] Specialty Care - General Surgery Professional Building [address] [place] [address], [address] [place] [address] Dietary considerations as discussed avoiding fatty foods push fluids call to schedule a routine appointment with general surgery above follow private medical doctor 1-2 days and return as needed as discussed - My Orders Last 24 Hours: My Active Orders 04/20/17 23:05 CBC WITH AUTO DIFF [HEME] Stat COMPREHENSIVE METABOLIC PN,CMP [CHEM] Stat INR,PT,PROTHROMBIN TIME [COAG] Stat LIPASE [CHEM] Stat 04/20/17 23:06 HCG QUALITATIVE,SERUM [CHEM] Stat Ketorolac [Toradol] 60 mg IM ONETIME ONE - Assessment/Plan Last 24 Hours: My Active Orders 04/20/17 23:05 CBC WITH AUTO DIFF [HEME] Stat COMPREHENSIVE METABOLIC PN,CMP [CHEM] Stat INR,PT,PROTHROMBIN TIME [COAG] Stat LIPASE [CHEM] Stat 04/20/17 23:06 HCG QUALITATIVE,SERUM [CHEM] Stat Ketorolac [Toradol] 60 mg IM ONETIME ONE
[2017-04-20 23:48] LABS: CHLORIDE,CL 105 mmol/L (98-110); SODIUM,NA 137 mmol/L (136-146)
[2017-04-21 01:31] VITALS: BP 132/66
== END 2017-04-21 00:50 | disposition home or self-care (01) ==
LOC: MW.ED 22:37
DX: R10.11 Right upper quadrant pain (principal); Z98.890 Other specified postprocedural states
CPT/HCPCS: 36415; 80053; 83690; 84703; 85025; 85610; 96372; 99284; J1885; 99283

== ENCOUNTER 2017-04-26 04:13 | Emergency (ER) | payer MEDICAID ==
[2017-04-26] MEDS ORDERED: Ketorolac 30 MG/ML SDV IVPUSH ONE (04:24)
--- NOTE | 2017-04-26 04:49 | EDM.PDOC ---
[id number]: ABDOMINAL CRAMPS Time Seen by Provider: 04/26/17 04:35 - History of Present Illness INITIAL COMMENTS - FREE TEXT/NARRATIVE: HISTORY AND PHYSICAL: History of present illness: Patient 21-year-old black female presents with a concern of abdominal pain she was seen multiple times in the past for this including recently her workup thus far as been remarkable for reported gallbladder disease she states this pain is lower not in the right upper quadrant has been without associated nausea vomiting fever chills. She denies urinary symptoms denies vaginal discharge or irregular bleeding patient denies known Review of systems: As per history of present illness and below otherwise all systems reviewed and negative. Past medical history: As per history of present illness and as reviewed below otherwise noncontributory. Surgical history: As per history of present illness and as reviewed below otherwise noncontributory. Social history: No reported history of drug or alcohol abuse. Family history: As per history of present illness and as reviewed below otherwise noncontributory. Physical exam: HEENT: Atraumatic, normocephalic, pupils reactive, negative for conjunctival pallor or scleral icterus, mucous membranes moist, throat clear, neck supple, nontender, trachea midline. Lungs: Clear to auscultation, breath sounds equal bilaterally, chest nontender. Heart: S1S2, regular, negative for clicks, rubs, or JVD. Abdomen: Soft, nondistended, mild nonlocalized lower abdominal tenderness no rebound no guarding Negative for masses or hepatosplenomegaly. Negative for costovertebral tenderness. Pelvis: Stable nontender. Genitourinary: Deferred. Rectal: Deferred. Extremities: Atraumatic, negative for cords or calf pain. Neurovascular unremarkable. Neuro: Awake, alert, oriented. Cranial nerves II through XII unremarkable. Cerebellum unremarkable. Motor and sensory unremarkable throughout. Exam nonfocal. Diagnostics: CBC CMP UA hCG amylase lipase quantitative hCG pelvic ultrasound Therapeutics: To be determined Impression: #1 abdominal pain Definitive disposition and diagnosis as appropriate pending reevaluation and review of above. lower abdominal Pain Score (Numeric/FACES): 10 - Related Data Allergies Allergy/AdvReac Type Severity Reaction Status Date / Time No Known Allergies Allergy Verified 04/26/17 04:21 Home Meds: Home Meds . [No Known Home Meds] 03/15/17 [History] Past Medical History - Past Health History Medical/Surgical History: Denies Medical/Surgical History HEENT History: Reports: None Cardiovascular History: Reports: None Respiratory History: Reports: None Gastrointestinal History: Reports: None Genitourinary History: Reports: None [employer] History: Reports: None Musculoskeletal History: Reports: None Neurological History: Reports: None Psychiatric History: Reports: None Endocrine/Metabolic History: Reports: None Hematologic History: Reports: None Immunologic History: Reports: None Oncologic (Cancer) History: Reports: None Dermatologic History: Reports: None - Infectious Disease History Infectious Disease History: Reports: None - Past Surgical History Head Surgeries/Procedures: Reports: None HEENT Surgical History: Reports: Oral Surgery Social & Family History - Family History Family Medical History: Noncontributory Endocrine/Metabolic: Reports: Diabetes, type II - Tobacco Use Smoking Status *Q: Never Smoker Second Hand Smoke Exposure: No - Caffeine Use Caffeine Use: Reports: Coffee - Alcohol Use Days Per Week of Alcohol Use: 1 Number of Drinks Per Day: 2 Total Drinks Per Week: 2 - Recreational Drug Use Recreational Drug Use: No - Living Situation & Occupation Living situation: Reports: with Significant Other Occupation: Employed ED ROS GENERAL - Review of Systems Review Of Systems: ROS reveals no pertinent complaints other than HPI. ED EXAM, GENERAL - Physical Exam Exam: See Below (See dictation) Course - Vital Signs Text/Narrative:: Repeat examination is no significant interval change quantitative beta was 146 pelvic ultrasound demonstrates a cystic structure within the right adnexa of unclear etiology there is no intrauterine noted. I discussed case with [employer]ICAL [employer] SPEC on-call doctor Donn who will present to the ER for further consultation including evaluation and definitive disposition. Last Recorded V/S: Last Vital Signs Temp 36.3 C 04/26/17 08:52 Pulse 81 04/26/17 08:52 Resp 18 04/26/17 08:52 BP 146/73 H 04/26/17 08:52 Pulse Ox 99 04/26/17 08:52 - Orders/Labs/Meds Labs: Laboratory Tests 04/26/17 04/26/17 04/26/17 Range/Units 04:23 04:23 04:50 WBC 9.57 (4.0-11.0) K/uL RBC 3.98 L (4.30-5.90) M/uL Hgb 11.9 L (12.0-16.0) g/dL Hct 35.1 L (36.0-46.0) % MCV 88.2 (80.0-98.0) fL MCH 29.9 (27.0-32.0) pg MCHC 33.9 (31.0-37.0) g/dL RDW Std Deviation 41.1 (28.0-62.0) fl RDW Coeff of Jr 13 (11.0-15.0) % Plt Count 336 (150-400) K/uL MPV 9.20 (7.40-12.00) fL Neut % (Auto) 56.9 (48.0-80.0) % Lymph % (Auto) 33.9 (16.0-40.0) % [place] % (Auto) 7.8 (0.0-15.0) % Eos % (Auto) 1.1 (0.0-7.0) % Baso % (Auto) 0.3 (0.0-1.5) % Neut # (Auto) 5.4 (1.4-5.7) K/uL Lymph # (Auto) 3.2 H (0.6-2.4) K/uL [place] # (Auto) 0.8 (0.0-0.8) K/uL Eos # (Auto) 0.1 (0.0-0.7) K/uL Baso # (Auto) 0.0 (0.0-0.1) K/uL Nucleated RBC % 0.0 /100WBC Nucleated RBCs # 0 K/uL Sodium (136-146) mmol/L Potassium (3.5-5.1) mmol/L Chloride (98-110) mmol/L Carbon Dioxide (21-31) mmol/L BUN (6.0-23.0) mg/dL Creatinine (0.6-1.5) mg/dL Est Cr Clr Drug Dosing mL/min Estimated GFR (MDRD) ml/min Glucose (60-110) mg/dL Calcium (8.8-10.8) mg/dL Total Bilirubin (0.1-1.5) mg/dL AST (5-40) IU/L ALT (8-54) IU/L Alkaline Phosphatase (40-150) Total Protein (6.0-8.0) g/dL Albumin (3.5-5.0) g/dL Globulin (2.0-3.5) g/dL Albumin/Globulin Ratio (1.3-2.8) Amylase (10-90) U/L Lipase (7-80) U/L HCG, Quant mIU/mL Urine Color YELLOW Urine Appearance CLEAR Urine pH 5.5 (5.0-8.0) Ur Specific [place] 1.025 (1.001-1.035) Urine Protein NEGATIVE (NEGATIVE) mg/dL Urine Glucose (UA) NEGATIVE (NEGATIVE) mg/dL Urine Ketones TRACE H (NEGATIVE) mg/dL Urine Occult Blood NEGATIVE (NEGATIVE) Urine Nitrite NEGATIVE (NEGATIVE) Urine Bilirubin NEGATIVE (NEGATIVE) Urine Urobilinogen 0.2 (<2.0) EU/dL Ur Leukocyte Esterase NEGATIVE (NEGATIVE) Urine RBC 0-1 (0-2/HPF) Urine WBC 0-2 (0-5/HPF) Ur Epithelial Cells FEW (NONE-FEW) Urine Bacteria FEW (NEGATIVE) Urine HCG, Qual POSITIVE (NEGATIVE) 04/26/17 04/26/17 Range/Units 04:50 04:50 WBC (4.0-11.0) K/uL RBC (4.30-5.90) M/uL Hgb (12.0-16.0) g/dL Hct (36.0-46.0) % MCV (80.0-98.0) fL MCH (27.0-32.0) pg MCHC (31.0-37.0) g/dL RDW Std Deviation (28.0-62.0) fl RDW Coeff of Jr (11.0-15.0) % Plt Count (150-400) K/uL MPV (7.40-12.00) fL Neut % (Auto) (48.0-80.0) % Lymph % (Auto) (16.0-40.0) % [place] % (Auto) (0.0-15.0) % Eos % (Auto) (0.0-7.0) % Baso % (Auto) (0.0-1.5) % Neut # (Auto) (1.4-5.7) K/uL Lymph # (Auto) (0.6-2.4) K/uL [place] # (Auto) (0.0-0.8) K/uL Eos # (Auto) (0.0-0.7) K/uL Baso # (Auto) (0.0-0.1) K/uL Nucleated RBC % /100WBC Nucleated RBCs # K/uL Sodium 136 (136-146) mmol/L Potassium 3.8 (3.5-5.1) mmol/L Chloride 106 (98-110) mmol/L Carbon Dioxide 20 L (21-31) mmol/L BUN 13 (6.0-23.0) mg/dL Creatinine 0.7 (0.6-1.5) mg/dL Est Cr Clr Drug Dosing 128.24 mL/min Estimated GFR (MDRD) > 60.0 ml/min Glucose 96 (60-110) mg/dL Calcium 9.7 (8.8-10.8) mg/dL Total Bilirubin 0.4 (0.1-1.5) mg/dL AST 18 (5-40) IU/L ALT 13 (8-54) IU/L Alkaline Phosphatase 71 (40-150) Total Protein 8.4 H (6.0-8.0) g/dL Albumin 4.3 (3.5-5.0) g/dL Globulin 4.1 H (2.0-3.5) g/dL Albumin/Globulin Ratio 1.1 L (1.3-2.8) Amylase 51 (10-90) U/L Lipase 17 (7-80) U/L HCG, Quant 145.9 mIU/mL Urine Color Urine Appearance Urine pH (5.0-8.0) Ur Specific [place] (1.001-1.035) Urine Protein (NEGATIVE) mg/dL Urine Glucose (UA) (NEGATIVE) mg/dL Urine Ketones (NEGATIVE) mg/dL Urine Occult Blood (NEGATIVE) Urine Nitrite (NEGATIVE) Urine Bilirubin (NEGATIVE) Urine Urobilinogen (<2.0) EU/dL Ur Leukocyte Esterase (NEGATIVE) Urine RBC (0-2/HPF) Urine WBC (0-5/HPF) Ur Epithelial Cells (NONE-FEW) Urine Bacteria (NEGATIVE) Urine HCG, Qual (NEGATIVE) Meds: Medications Discontinued Medications Generic Name Dose Route Start Last Admin Trade Name Freq PRN Reason Stop Dose Admin Ketorolac Tromethamine 30 mg 04/26/17 04:24 04/26/17 04:51 Toradol IVPUSH 04/26/17 04:25 Not Given ONETIME ONE Departure - Departure Time of Disposition: 08:30 Disposition: Home, Self-Care 01 Clinical Impression: First trimester , Ectopic - Discharge Information Referrals: PCP,None [Primary Care Provider] - Forms: ED Department Discharge
[2017-04-26 05:21] LABS: CHLORIDE,CL 106 mmol/L (98-110); SODIUM,NA 136 mmol/L (136-146)
[2017-04-26 08:54] VITALS: BP 146/73
--- NOTE | 2017-04-26 10:51 | US ---
EXAM DATE: 04/26/17 PATIENT'S AGE: 21 Patient: DARIN JONES Facility: [place], [place] Site . Site : 1995 Study: US OB Pelvis [id number]/22/2017 6:05:47 AM Ordering Physician: Toya Matthew Final Report: INDICATION: Lower abdominal pain. Positive test. COMPARISON: none TECHNIQUE: 2D owen scale and color Doppler images were acquired of the pelvis using a transabdominal and transvaginal approach. FINDINGS: Sonographic images demonstrate a normal size and smooth outer contour of the uterus. Uterus measures 7.9 cm in length by 3.4 cm in AP diameter by 4.4 cm in transverse dimension. The myometrium has a normal uniform echotexture. The endometrial lining measures 13 mm in composite thickness and there is no evidence of an intrauterine gestational sac. There is a complex cystic structure within the right adnexa which extends along the anterior margin of the uterus. This measures 6.4 x 4.2 cm in size and there is no vascularity along the posterior margin which has slight mural thickening. The left ovary measures 3.1 x 2.4 x 2.7 cm and demonstrates normal arterial and venous blood flow on color Doppler analysis. There is a trace amount of free fluid within the dependent cul-de-sac and left adnexa. IMPRESSION: Abnormal sonogram with absence of an intrauterine gestational sac. There is a cystic structure within the right adnexa of uncertain etiology. This could reflect a potential ectopic although the lack of significant vascularity about the margins may indicate the presence of a preexisting ovarian cyst or perhaps a right-sided hydrosalpinx. Findings will require correlation with serial beta HCG measurements and potential followup sonogram. Dictated by Vipul Tai MD @ Apr 26 2017 6:28AM (Electronic Signature) Report Signed by Proxy. ALESSIA
--- NOTE | 2017-04-27 07:59 | CONS ---
DATE OF CONSULTATION: 04/26/2017 DATE OF : 1995 PRIMARY CARE PHYSICIAN: Alize PCP ER Consultation She is 21-year-old patient, and for the purpose of this consultation, I reviewed the ultrasound and reviewed the ER doctor's note. Briefly, she is a 21-year-old nulliparous. She came complaining of abdominal pain to the emergency room. She is worked up for that and test was positive. Her quantitative is low at this time. The patient does not have any spotting or bleeding, and her ultrasound shows multiple ovarian cysts. The biggest in diameter is 3 cm, and it is consistent with possible corpus luteum cyst. The patient is currently, when I saw her, she is not in pain. Her abdominal examination is benign. She had no bleeding, and based on the ultrasound findings and examination, the patient probably have early . I advised her at this time to repeat her quantitative level at 48 hours and to have followup in the office with us towards the end of this week maybe on Tuesday, and I warned her about possibility of tubal and a possibility of miscarriage, and we gave her the precautions for tubal and miscarriage. Followup examination in the office next Tuesday. CELENA / ANNE /[id number]
== END 2017-04-26 08:57 | disposition home or self-care (01) ==
LOC: MW.ED 04:13
DX: O00.90 Unspecified ectopic pregnancy without intrauterine pregnancy (principal); R10.30 Lower abdominal pain, unspecified; Z98.890 Other specified postprocedural states
CPT/HCPCS: 36415; 76801; 76801-26; 80053; 81001; 81025; 82150; 83690; 84702; 85025; 99283; 99284-25

== ENCOUNTER 2017-04-27 10:06 | Emergency (ER) | payer MEDICAID ==
--- NOTE | 2017-04-27 10:40 | EDM.PDOC ---
ED HPI GENERAL MEDICAL PROBLEM - General Chief Complaint: Abdominal Pain Stated Complaint: ABD PAIN Time Seen by Provider: 04/27/17 10:30 Source of Information: Reports: Patient History Limitations: Reports: No Limitations - History of Present Illness INITIAL COMMENTS - FREE TEXT/NARRATIVE: HISTORY AND PHYSICAL: History of present illness: [Patient comes to the emergency room with continued complaints of abdominal pain. She was evaluated in the emergency room yesterday, at which time Dr. Pop was consulted. She called his office this morning regarding continued abdominal pain and was advised to come to the ER for reevaluation. Pelvic ultrasound completed on April 26 was abnormal, questionable ectopic or cyst to right adnexal area. Her abdominal pain has not changed in location or intensity. She presents with complaints of continued abdominal pain. No fever or chills. Denies chest pain, shortness of breath and difficulty breathing. Appetite has been normal. No nausea or vomiting. Had a normal bowel movement yesterday. Has not had any constipation or diarrhea today. No burning with urination. Denies vaginal bleeding, pain, and spotting.] Review of systems: As per history of present illness and below otherwise all systems reviewed and negative. Past medical history: As per history of present illness and as reviewed below otherwise noncontributory. Surgical history: As per history of present illness and as reviewed below otherwise noncontributory. Social history: No reported history of drug or alcohol abuse. Family history: As per history of present illness and as reviewed below otherwise noncontributory. Physical exam: Gen.: Well-developed, well-nourished black female in no acute distress. HEENT: Atraumatic, normocephalic. Oral mucous membranes moist. Lungs: Clear to auscultation, breath sounds equal bilaterally. Heart: S1S2, regular rate and rhythm. No murmur gallop click or rub. Abdomen: Obese. Bowel sounds are normal throughout. Abdomen is soft and nondistended. She is tender throughout her lower abdomen. Soft, nondistended, nontender. Negative for masses, guarding or rebound. Negative for costovertebral tenderness. Pelvis: Stable nontender. Genitourinary: Deferred. Rectal: Deferred. Extremities: Atraumatic, negative for cyanosis and edema to feet and lower legs. Neurovascular unremarkable. Neuro: Awake, alert, oriented. Exam nonfocal. Diagnostics: [CBC, quantitative hCG, OB ultrasound] Impression: [First trimester ] Plan: [Dr. Pop is requested to consult patient. He came to the ER and examined patient. Patient is discharged home per Dr. Pop's disposition. Patient is instructed to follow-up for regular labs as previously instructed by Dr. Pop. Definitive disposition and diagnosis as appropriate pending reevaluation and review of above. Abdomen Pain Score (Numeric/FACES): 10 - Related Data Allergies Allergy/AdvReac Type Severity Reaction Status Date / Time No Known Allergies Allergy Verified 04/26/17 04:21 Home Meds: Home Meds . [No Known Home Meds] 03/15/17 [History] Past Medical History - Past Health History Medical/Surgical History: Denies Medical/Surgical History HEENT History: Reports: None Cardiovascular History: Reports: None Respiratory History: Reports: None Gastrointestinal History: Reports: None Genitourinary History: Reports: None ART DEPARTMENT HEAD History: Reports: None Musculoskeletal History: Reports: None Neurological History: Reports: None Psychiatric History: Reports: None Endocrine/Metabolic History: Reports: None Hematologic History: Reports: None Immunologic History: Reports: None Oncologic (Cancer) History: Reports: None Dermatologic History: Reports: None - Infectious Disease History Infectious Disease History: Reports: None - Past Surgical History Head Surgeries/Procedures: Reports: None HEENT Surgical History: Reports: Oral Surgery Social & Family History - Family History Family Medical History: Noncontributory Endocrine/Metabolic: Reports: Diabetes, type II - Tobacco Use Smoking Status *Q: Never Smoker Second Hand Smoke Exposure: No - Caffeine Use Caffeine Use: Reports: Coffee - Alcohol Use Days Per Week of Alcohol Use: 1 Number of Drinks Per Day: 2 Total Drinks Per Week: 2 - Recreational Drug Use Recreational Drug Use: No - Living Situation & Occupation Living situation: Reports: with Significant Other Occupation: Employed ED ROS GENERAL - Review of Systems Review Of Systems: ROS reveals no pertinent complaints other than HPI. ED EXAM, GI/ABD - Physical Exam Exam: See Below Course - Vital Signs Last Recorded V/S: Last Vital Signs Temp 97.8 F 04/27/17 10:15 Pulse 90 04/27/17 10:15 Resp 18 04/27/17 10:15 BP 141/85 H 04/27/17 10:15 Pulse Ox 98 04/27/17 10:15 - Orders/Labs/Meds Labs: Laboratory Tests 04/27/17 Range/Units 10:03 WBC 9.04 (4.0-11.0) K/uL RBC 4.06 L (4.30-5.90) M/uL Hgb 12.3 (12.0-16.0) g/dL Hct 35.9 L (36.0-46.0) % MCV 88.4 (80.0-98.0) fL MCH 30.3 (27.0-32.0) pg MCHC 34.3 (31.0-37.0) g/dL RDW Std Deviation 41.3 (28.0-62.0) fl RDW Coeff of Jr 13 (11.0-15.0) % Plt Count 352 (150-400) K/uL MPV 9.40 (7.40-12.00) fL Neut % (Auto) 62.3 (48.0-80.0) % Lymph % (Auto) 32.6 (16.0-40.0) % [place] % (Auto) 4.3 (0.0-15.0) % Eos % (Auto) 0.6 (0.0-7.0) % Baso % (Auto) 0.2 (0.0-1.5) % Neut # (Auto) 5.6 (1.4-5.7) K/uL Lymph # (Auto) 3.0 H (0.6-2.4) K/uL [place] # (Auto) 0.4 (0.0-0.8) K/uL Eos # (Auto) 0.1 (0.0-0.7) K/uL Baso # (Auto) 0.0 (0.0-0.1) K/uL Nucleated RBC % 0.0 /100WBC Nucleated RBCs # 0 K/uL Departure - Departure Time of Disposition: 12:00 Disposition: Home, Self-Care 01 Condition: Good Clinical Impression: First trimester - Discharge Information Referrals: PCP,None [Primary Care Provider] - Forms: ED Department Discharge Additional Instructions: The following information is given to patients seen in the emergency department who are being discharged to home. This information is to outline your options for follow-up care. We provide all patients seen in our emergency department with a follow-up referral. The need for follow-up, as well as the timing and circumstances, are variable depending upon the specifics of your emergency department visit. If you don't have a primary care physician on staff, we will provide you with a referral. We always advise you to contact your personal physician following an emergency department visit to inform them of the circumstance of the visit and for follow-up with them and/or the need for any referrals to a consulting specialist. The emergency department will also refer you to a specialist when appropriate. This referral assures that you have the opportunity for follow-up care with a specialist. All of these measure are taken in an effort to provide you with optimal care, which includes your follow-up. Under all circumstances we always encourage you to contact your private physician who remains a resource for coordinating your care. When calling for follow-up care, please make the office aware that this follow-up is from your recent emergency room visit. If for any reason you are refused follow-up, please contact the [facility] emergency department at and asked to speak to the emergency department charge nurse. [facility] Primary care - Women's Health [address] [place] [id number] Continue with regular lab draws as ordered by Dr. Pop. Follow-up at the clinic listed above on April 29. Return to ER as needed as discussed.
--- NOTE | 2017-04-27 11:14 | US ---
EXAMINATION: Transabdominal pelvic/obstetric ultrasound HISTORY: Bleeding, positive test. Beta-hCG 281. COMPARISON: 04/26/2017 TECHNIQUE: Grayscale and color Doppler images obtained of the pelvis transabdominally. FINDINGS: The uterus is normal in size, contour and echogenicity focal uterine mass. No intrauterine gestational sac identified. Endometrial stripe thickness measures approximately 1 cm. There is a small to moderate amount of free fluid noted. The previously demonstrated 6 x 4 cm right adnexal cyst is no longer characterized. The right ovary is otherwise mildly prominent in size, othe rwise unremarkable. There is mild color flow within the right ovary. Left ovary appears normal. IMPRESSION: 1. Small to moderate amount of free pelvic fluid, however the previously demonstrated right adnexal cyst is no longer appreciated and likely ruptured. 2. No intrauterine gestational sac identified, however given the beta-hCG level is a gestational sac is not yet expected. An ectopic cannot be excluded.
[2017-04-27 19:15] VITALS: BP 129/72
== END 2017-04-27 12:30 | disposition home or self-care (01) ==
LOC: MW.ED 10:06
DX: O99.89 Other specified diseases and conditions complicating pregnancy, childbirth and the puerperium (principal); R10.9 Unspecified abdominal pain; O20.0 Threatened abortion
CPT/HCPCS: 36415; 76801; 76801-26; 84702; 85025; 99283; 99284-25

== ENCOUNTER 2017-06-16 12:39 | Emergency (ER) | payer MEDICAID ==
[2017-06-16] MEDS ORDERED: Ketorolac 30 MG/ML SDV IVPUSH ONE (12:45)
[2017-06-16] MEDS ORDERED: Ondansetron 4 MG/2 ML SDV IVPUSH ONE (12:45)
[2017-06-16] MEDS ORDERED: Sodium Chloride 0.9% 1,000 ML IV ONE (12:45)
--- NOTE | 2017-06-16 12:46 | EDM.PDOC ---
ED HPI GENERAL MEDICAL PROBLEM - General Chief Complaint: Abdominal Pain Stated Complaint: ABDOMINAL PAIN Time Seen by Provider: 06/16/17 12:46 Source of Information: Reports: Patient - History of Present Illness INITIAL COMMENTS - FREE TEXT/NARRATIVE: HISTORY AND PHYSICAL: History of present illness: []Patient presents 11 weeks with IUP complains of sharp lower abdominal pains that come and go over the last couple of days she was seen by her OB provider yesterday, no no vaginal bleeding spotting or fluid leakage no low back pain LMP March 29, 2017 No fever chills sweats no chest pain shortness breath headache dizziness palpitation no bowel or urine symptoms Review of systems: As per history of present illness and below otherwise all systems reviewed and negative. Past medical history: As per history of present illness and as reviewed below otherwise noncontributory. Surgical history: As per history of present illness and as reviewed below otherwise noncontributory. Social history: No reported history of drug or alcohol abuse. Family history: As per history of present illness and as reviewed below otherwise noncontributory. Physical exam: HEENT: Atraumatic, normocephalic, pupils reactive, negative for conjunctival pallor or scleral icterus, mucous membranes moist, throat clear, neck supple, nontender, trachea midline. Lungs: Clear to auscultation, breath sounds equal bilaterally, chest nontender. Heart: S1S2, regular, negative for clicks, rubs, or JVD. Abdomen: Soft, nondistended, nontender. Negative for masses or hepatosplenomegaly. Negative for costovertebral tenderness. Pelvis: Stable nontender. Genitourinary: Deferred. Rectal: Deferred. Extremities: Atraumatic, negative for cords or calf pain. Neurovascular unremarkable. Neuro: Awake, alert, oriented. Cranial nerves II through XII unremarkable. Cerebellum unremarkable. Motor and sensory unremarkable throughout. Exam nonfocal. Diagnostics: []Lab as below Therapeutics: []1 L normal saline bolus patient reviews refused IV fluids Zofran 8 mg IV Toradol 30 mg IV Impression: []Abdominal pain intermittently 11 weeks with IUP heart tones 130s/140s twin gestation Evidence of UTI we'll follow culture prophylactic treatment with Macrobid Definitive disposition and diagnosis as appropriate pending reevaluation and review of above. 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 Musculoskeletal History: Reports: None Neurological History: Reports: None Psychiatric History: Reports: None Endocrine/Metabolic History: Reports: None Hematologic History: Reports: None Immunologic History: Reports: None Oncologic (Cancer) History: Reports: None Dermatologic History: Reports: None - Infectious Disease History Infectious Disease History: Reports: None - Past Surgical History Head Surgeries/Procedures: Reports: None HEENT Surgical History: Reports: Oral Surgery Social & Family History - Family History Family Medical History: Noncontributory Endocrine/Metabolic: Reports: Diabetes, type II - Tobacco Use Smoking Status *Q: Never Smoker Second Hand Smoke Exposure: No - Caffeine Use Caffeine Use: Reports: Coffee - Alcohol Use Days Per Week of Alcohol Use: 1 Number of Drinks Per Day: 2 Total Drinks Per Week: 2 - Recreational Drug Use Recreational Drug Use: No - Living Situation & Occupation Living situation: Reports: with Significant Other Occupation: Employed ED ROS GENERAL - Review of Systems Review Of Systems: ROS reveals no pertinent complaints other than HPI. ED EXAM, GENERAL - Physical Exam Exam: See Below Course - Vital Signs Last Recorded V/S: Last Vital Signs Temp 36.8 C 06/16/17 13:05 Pulse 79 06/16/17 13:05 Resp 18 06/16/17 13:05 BP 121/61 06/16/17 13:05 Pulse Ox 96 06/16/17 13:05 - Orders/Labs/Meds Orders: Active Orders 24 hr Category Date Time Status Heart Tones [ Heart Rate] [RC] Click to Edit Care 06/16/17 13:15 Active CULTURE URINE [RM] Stat Lab 06/16/17 15:37 Uncollected UA W/MICROSCOPIC [URIN] Stat Lab 06/16/17 15:17 Results Labs: Laboratory Tests 06/16/17 06/16/17 06/16/17 Range/Units 12:52 12:52 13:09 WBC 8.59 (4.0-11.0) K/uL RBC 3.84 L (4.30-5.90) M/uL Hgb 11.6 L (12.0-16.0) g/dL Hct 34.2 L (36.0-46.0) % MCV 89.1 (80.0-98.0) fL MCH 30.2 (27.0-32.0) pg MCHC 33.9 (31.0-37.0) g/dL RDW Std Deviation 43.0 (28.0-62.0) fl RDW Coeff of Jr 13 (11.0-15.0) % Plt Count 298 (150-400) K/uL MPV 9.00 (7.40-12.00) fL Neut % (Auto) 62.8 (48.0-80.0) % Lymph % (Auto) 27.4 (16.0-40.0) % [place] % (Auto) 8.8 (0.0-15.0) % Eos % (Auto) 0.8 (0.0-7.0) % Baso % (Auto) 0.2 (0.0-1.5) % Neut # (Auto) 5.4 (1.4-5.7) K/uL Lymph # (Auto) 2.4 (0.6-2.4) K/uL [place] # (Auto) 0.8 (0.0-0.8) K/uL Eos # (Auto) 0.1 (0.0-0.7) K/uL Baso # (Auto) 0.0 (0.0-0.1) K/uL Nucleated RBC % 0.0 /100WBC Nucleated RBCs # 0 K/uL Sodium 135 L (136-146) mmol/L Potassium 4.0 (3.5-5.1) mmol/L Chloride 108 (98-110) mmol/L Carbon Dioxide 21 (21-31) mmol/L BUN 10 (6.0-23.0) mg/dL Creatinine 0.6 (0.6-1.5) mg/dL Est Cr Clr Drug Dosing TNP Estimated GFR (MDRD) > 60.0 ml/min Glucose 82 (60-110) mg/dL Calcium 9.5 (8.8-10.8) mg/dL Total Bilirubin 0.2 (0.1-1.5) mg/dL AST 20 (5-40) IU/L ALT 21 (8-54) IU/L Alkaline Phosphatase 66 (40-150) Total Protein 7.6 (6.0-8.0) g/dL Albumin 3.7 (3.5-5.0) g/dL Globulin 3.9 H (2.0-3.5) g/dL Albumin/Globulin Ratio 1.0 L (1.3-2.8) Amylase 65 (10-90) U/L Lipase 29 (7-80) U/L HCG, Quant 663812.2 mIU/mL Urine Color Urine Appearance Urine pH (5.0-8.0) Ur Specific [place] (1.001-1.035) Urine Protein (NEGATIVE) mg/dL Urine Glucose (UA) (NEGATIVE) mg/dL Urine Ketones (NEGATIVE) mg/dL Urine Occult Blood (NEGATIVE) Urine Nitrite (NEGATIVE) Urine Bilirubin (NEGATIVE) Urine Urobilinogen (<2.0) EU/dL Ur Leukocyte Esterase (NEGATIVE) 06/16/17 Range/Units 15:17 WBC (4.0-11.0) K/uL RBC (4.30-5.90) M/uL Hgb (12.0-16.0) g/dL Hct (36.0-46.0) % MCV (80.0-98.0) fL MCH (27.0-32.0) pg MCHC (31.0-37.0) g/dL RDW Std Deviation (28.0-62.0) fl RDW Coeff of Jr (11.0-15.0) % Plt Count (150-400) K/uL MPV (7.40-12.00) fL Neut % (Auto) (48.0-80.0) % Lymph % (Auto) (16.0-40.0) % [place] % (Auto) (0.0-15.0) % Eos % (Auto) (0.0-7.0) % Baso % (Auto) (0.0-1.5) % Neut # (Auto) (1.4-5.7) K/uL Lymph # (Auto) (0.6-2.4) K/uL [place] # (Auto) (0.0-0.8) K/uL Eos # (Auto) (0.0-0.7) K/uL Baso # (Auto) (0.0-0.1) K/uL Nucleated RBC % /100WBC Nucleated RBCs # K/uL Sodium (136-146) mmol/L Potassium (3.5-5.1) mmol/L Chloride (98-110) mmol/L Carbon Dioxide (21-31) mmol/L BUN (6.0-23.0) mg/dL Creatinine (0.6-1.5) mg/dL Est Cr Clr Drug Dosing Estimated GFR (MDRD) ml/min Glucose (60-110) mg/dL Calcium (8.8-10.8) mg/dL Total Bilirubin (0.1-1.5) mg/dL AST (5-40) IU/L ALT (8-54) IU/L Alkaline Phosphatase (40-150) Total Protein (6.0-8.0) g/dL Albumin (3.5-5.0) g/dL Globulin (2.0-3.5) g/dL Albumin/Globulin Ratio (1.3-2.8) Amylase (10-90) U/L Lipase (7-80) U/L HCG, Quant mIU/mL Urine Color YELLOW Urine Appearance CLEAR Urine pH 6.0 (5.0-8.0) Ur Specific [place] 1.025 (1.001-1.035) Urine Protein NEGATIVE (NEGATIVE) mg/dL Urine Glucose (UA) NEGATIVE (NEGATIVE) mg/dL Urine Ketones 40 H (NEGATIVE) mg/dL Urine Occult Blood TRACE-INTACT (NEGATIVE) Urine Nitrite NEGATIVE (NEGATIVE) Urine Bilirubin NEGATIVE (NEGATIVE) Urine Urobilinogen 0.2 (<2.0) EU/dL Ur Leukocyte Esterase NEGATIVE (NEGATIVE) Meds: Medications Discontinued Medications Generic Name Dose Route Start Last Admin Trade Name Freq PRN Reason Stop Dose Admin Sodium Chloride 1,000 mls @ 999 mls/hr 06/16/17 12:45 06/16/17 13:19 Normal Saline IV 06/16/17 13:45 Not Given STAT ONE Ketorolac Tromethamine 30 mg 06/16/17 12:45 06/16/17 13:19 Toradol IVPUSH 06/16/17 12:46 Not Given ONETIME ONE Ondansetron HCl 8 mg 06/16/17 12:45 06/16/17 13:19 Zofran IVPUSH 06/16/17 12:46 Not Given ONETIME ONE Ondansetron HCl 8 mg 06/16/17 13:16 06/16/17 13:21 Zofran Odt PO 06/16/17 13:17 8 mg ONETIME ONE Administration Departure - Departure Time of Disposition: 15:38 Disposition: Home, Self-Care 01 Condition: Good Clinical Impression: UTI (urinary tract infection) - Discharge Information Referrals: Pasquale Jc MD [Primary Care Provider] - Forms: ED Department Discharge Additional Instructions: Medication as prescribed Return if symptoms persist or worsen Follow-up with OB as scheduled The following information is given to patients seen in the emergency department who are being discharged to home. This information is to outline your options for follow-up care. We provide all patients seen in our emergency department with a follow-up referral. The need for follow-up, as well as the timing and circumstances, are variable depending upon the specifics of your emergency department visit. If you don't have a primary care physician on staff, we will provide you with a referral. We always advise you to contact your personal physician following an emergency department visit to inform them of the circumstance of the visit and for follow-up with them and/or the need for any referrals to a consulting specialist. The emergency department will also refer you to a specialist when appropriate. This referral assures that you have the opportunity for follow-up care with a specialist. All of these measure are taken in an effort to provide you with optimal care, which includes your follow-up. Under all circumstances we always encourage you to contact your private physician who remains a resource for coordinating your care. When calling for follow-up care, please make the office aware that this follow-up is from your recent emergency room visit. If for any reason you are refused follow-up, please contact the [facility] emergency department at and asked to speak to the emergency department charge nurse. - My Orders Last 24 Hours: My Active Orders 06/16/17 13:15 Heart Tones [ Heart Rate] [RC] Click to Edit 06/16/17 15:17 UA W/MICROSCOPIC [URIN] Stat 06/16/17 15:37 CULTURE URINE [RM] Stat - Assessment/Plan Last 24 Hours: My Active Orders 06/16/17 13:15 Heart Tones [ Heart Rate] [RC] Click to Edit 06/16/17 15:17 UA W/MICROSCOPIC [URIN] Stat 06/16/17 15:37 CULTURE URINE [RM] Stat
[2017-06-16] MEDS ORDERED: Ondansetron 4 MG Tab.DIS PO ONE (13:16)
[2017-06-16 13:24] LABS: CHLORIDE,CL 108 mmol/L (98-110); SODIUM,NA 135 mmol/L (136-146)
[2017-06-16 13:27] VITALS: BP 121/61
== END 2017-06-16 16:00 | disposition home or self-care (01) ==
LOC: MW.ED 12:39
DX: O23.41 Unspecified infection of urinary tract in pregnancy, first trimester (principal); Z3A.11 11 weeks gestation of pregnancy
CPT/HCPCS: 36415; 80053; 81001; 82150; 83690; 84702; 85025; 99284; A9270

== ENCOUNTER 2017-07-03 20:25 | Emergency (ER) | payer MEDICAID ==
--- NOTE | 2017-07-03 21:28 | EDM.PDOC ---
<Nathan Sesay - Last Filed: 07/03/17 22:31> ED HPI GENERAL MEDICAL PROBLEM - General Chief Complaint: Abdominal Pain Stated Complaint: 13WEEKS/ABDOMINAL PAIN Time Seen by Provider: 07/03/17 21:16 Source of Information: Reports: Patient History Limitations: Reports: No Limitations - History of Present Illness INITIAL COMMENTS - FREE TEXT/NARRATIVE: History of present illness: [21-year-old female comes in complaining of cramping and right-sided lower pelvic pressure. Patient is with twins and is concerned that she is having problems] Review of systems: As per history of present illness and below otherwise all systems reviewed and negative. Past medical history: As per history of present illness and as reviewed below otherwise noncontributory. Surgical history: As per history of present illness and as reviewed below otherwise noncontributory. Social history: No reported history of drug or alcohol abuse. Family history: As per history of present illness and as reviewed below otherwise noncontributory. Physical exam: HEENT: Atraumatic, normocephalic, pupils reactive, negative for conjunctival pallor or scleral icterus, mucous membranes moist, throat clear, neck supple, nontender, trachea midline. Lungs: Clear to auscultation, breath sounds equal bilaterally, chest nontender. Heart: S1S2, regular, negative for clicks, rubs, or JVD. Abdomen: Soft, nondistended, nontender. Negative for masses or hepatosplenomegaly. Negative for costovertebral tenderness. Pelvis: Stable nontender. Genitourinary: Deferred. Rectal: Deferred. Extremities: Atraumatic, negative for cords or calf pain. Neurovascular unremarkable. Neuro: Awake, alert, oriented. Cranial nerves II through XII unremarkable. Cerebellum unremarkable. Motor and sensory unremarkable throughout. Exam nonfocal. Diagnostics: [ABO Rh serum quantitative, UA, transvaginal ultrasound] Therapeutics: [] Impression: [] Plan: [] Definitive disposition and diagnosis as appropriate pending reevaluation and review of above. - Related Data Allergies Allergy/AdvReac Type Severity Reaction Status Date / Time No Known Allergies Allergy Verified 07/03/17 21:06 Home Meds: Home Meds . 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 Musculoskeletal History: Reports: None Neurological History: Reports: None Psychiatric History: Reports: None Endocrine/Metabolic History: Reports: None Hematologic History: Reports: None Immunologic History: Reports: None Oncologic (Cancer) History: Reports: None Dermatologic History: Reports: None - Infectious Disease History Infectious Disease History: Reports: None - Past Surgical History Head Surgeries/Procedures: Reports: None HEENT Surgical History: Reports: Oral Surgery Social & Family History - Family History Family Medical History: Noncontributory Endocrine/Metabolic: Reports: Diabetes, type II - Tobacco Use Smoking Status *Q: Never Smoker Second Hand Smoke Exposure: No - Caffeine Use Caffeine Use: Reports: None - Alcohol Use Days Per Week of Alcohol Use: 1 Number of Drinks Per Day: 2 Total Drinks Per Week: 2 - Recreational Drug Use Recreational Drug Use: No - Living Situation & Occupation Living situation: Reports: with Significant Other Occupation: Employed ED ROS GENERAL - Review of Systems Review Of Systems: See Below (See history of present illness) ED EXAM, GENERAL - Physical Exam Exam: See Below (See history of present illness) Course - Vital Signs Last Recorded V/S: Last Vital Signs Temp 97.8 F 07/04/17 00:03 Pulse 95 07/04/17 00:03 Resp 16 07/04/17 00:03 BP 114/56 L 07/04/17 00:03 Pulse Ox 99 07/04/17 00:03 - Orders/Labs/Meds Orders: Active Orders 24 hr Category Date Time Status OB 1st Tri Sgl 1st Gest [US] Stat Exams 07/03/17 21:05 Taken Labs: Laboratory Tests 07/03/17 07/03/17 07/03/17 Range/Units 21:12 21:12 22:00 WBC 9.55 (4.0-11.0) K/uL RBC 3.45 L (4.30-5.90) M/uL Hgb 10.6 L (12.0-16.0) g/dL Hct 30.9 L (36.0-46.0) % MCV 89.6 (80.0-98.0) fL MCH 30.7 (27.0-32.0) pg MCHC 34.3 (31.0-37.0) g/dL RDW Std Deviation 43.2 (28.0-62.0) fl RDW Coeff of Jr 13 (11.0-15.0) % Plt Count 305 (150-400) K/uL MPV 9.10 (7.40-12.00) fL Neut % (Auto) 57.2 (48.0-80.0) % Lymph % (Auto) 34.5 (16.0-40.0) % [place] % (Auto) 6.9 (0.0-15.0) % Eos % (Auto) 1.2 (0.0-7.0) % Baso % (Auto) 0.2 (0.0-1.5) % Neut # (Auto) 5.5 (1.4-5.7) K/uL Lymph # (Auto) 3.3 H (0.6-2.4) K/uL [place] # (Auto) 0.7 (0.0-0.8) K/uL Eos # (Auto) 0.1 (0.0-0.7) K/uL Baso # (Auto) 0.0 (0.0-0.1) K/uL Nucleated RBC % 0.0 /100WBC Nucleated RBCs # 0 K/uL HCG, Quant 564217.8 mIU/mL Urine Color YELLOW Urine Appearance CLEAR Urine pH 6.5 (5.0-8.0) Ur Specific [place] 1.015 (1.001-1.035) Urine Protein NEGATIVE (NEGATIVE) mg/dL Urine Glucose (UA) NEGATIVE (NEGATIVE) mg/dL Urine Ketones NEGATIVE (NEGATIVE) mg/dL Urine Occult Blood TRACE-INTACT (NEGATIVE) Urine Nitrite NEGATIVE (NEGATIVE) Urine Bilirubin NEGATIVE (NEGATIVE) Urine Urobilinogen 0.2 (<2.0) EU/dL Ur Leukocyte Esterase NEGATIVE (NEGATIVE) Urine RBC 0-2 (0-2/HPF) Urine WBC 1-4 (0-5/HPF) Ur Epithelial Cells MODERATE (NONE-FEW) Urine Bacteria 2+ H (NEGATIVE) Departure - Departure Disposition: Home, Self-Care 01 Clinical Impression: Twin gestation in first trimester - Discharge Information Referrals: Pasquale Jc MD [Primary Care Provider] - Forms: ED Department Discharge Additional Instructions: routine follow up with your doctor <Max Camarena - Last Filed: 07/04/17 01:07> Course - Re-Assessments/Exams Free Text/Narrative Re-Assessment/Exam: 07/04/17 01:06 I discussed unremarkable ultrasound findings with Charlene . Max Camarena MD Departure - Departure Time of Disposition: 01:06 Condition: Good
[2017-07-04 01:33] VITALS: BP 131/80
--- NOTE | 2017-07-04 15:42 | US ---
EXAM DATE: 07/03/17 PATIENT'S AGE: 21 Patient: DARIN JONES Facility: [place], [place] Site . Site : 1995 Study: US OB Pelvis [id number] 11:22:20 PM Ordering Physician: Doctor Carpio Final Report: INDICATION: Pain TECHNIQUE: Ultrasound OB pelvis transvaginal. Real time owen scale imaging of the pelvis was performed. COMPARISON: 04/27/2017 FINDINGS: LMP: 03/28/2017 Gestational age by LMP: 13 weeks 6 days Estimated due date by LMP: 01/02/2018 Sonographic imaging demonstrates a 2 intrauterine pregnancies with separate gestational sacs and a shared posterior placenta. Twin A: Maybell-rump length 7.8 centimeters consistent with gestational age of 13 weeks 6 days. heart rate of 152 beats per minute. Twin B: Maybell-rump length 7.38 centimeters consistent with gestational age of 13 weeks 4 days. heart rate 155 beats per minute. No evidence for subchorionic hemorrhage The cervix is closed with a small amount of fluid in the cervical canal. The myometrium appears normal. The ovaries are visualized. There are no suspicious fluid collections noted in the cul-de-sac. IMPRESSION: Twin intrauterine pregnancies with separate gestational sacs and a shared posterior placenta. Twin A crown-rump length consistent with gestational age of 13 weeks 6 days and Twin B crown-rump length consistent with gestational age of 13 weeks 4 days. This compares to the gestational age by LMP of 13 weeks 6 days. Small amount of fluid in the cervical canal. Otherwise no gross abnormalities. Dictated by Enrrique Urena MD @ 07/04/2017 12:50:47 AM Dictated by: Enrrique Urena MD @ 07/04/2017 00:51:11 (Electronic Signature) Report Signed by Proxy. ALESSIA
== END 2017-07-04 01:26 | disposition home or self-care (01) ==
LOC: MW.ED 20:25
DX: O30.001 Twin pregnancy, unspecified number of placenta and unspecified number of amniotic sacs, first trimester (principal); Z3A.13 13 weeks gestation of pregnancy
CPT/HCPCS: 36415; 76801; 76801-26; 81001; 84702; 85025; 99282; 99284-25

== ENCOUNTER 2017-11-10 18:54 | Observation (INO) | payer MEDICAID ==
[2017-11-10] MEDS ORDERED: Lactated Ringers 1,000 ML IV STA (19:33)
[2017-11-10] MEDS ORDERED: Terbutaline 1 MG/ML SDV SUBCUT ONE (19:39)
[2017-11-10] MEDS: Betamethasone Acetate/Betamethasone Sod Phosphate 30 MG/5 ML MDV IM SCH (20:08)
[2017-11-10] MEDS ORDERED: NIFEdipine 10 MG Cap PO ONE (21:36)
[2017-11-10] MEDS ORDERED: Citric Acid/Sodium Citrate Solution 30 ML Cup PO ONE (23:46)
[2017-11-11] MEDS: NIFEdipine 10 MG Cap PO PRN ×3 (04:10→16:33)
[2017-11-11] MEDS ORDERED: Calcium Carbonate 500 MG Tab.Chew PO PRN (12:30)
[2017-11-11 16:39] VITALS: BP 138/76
[2017-11-11] MEDS: Betamethasone Acetate/Betamethasone Sod Phosphate 30 MG/5 ML MDV IM SCH (19:59)
== END 2017-11-11 20:50 | disposition home or self-care (01) ==
LOC: MW.OBCHECK 18:54 → MW.OB 18:55 → MW.OBCHECK 19:32
PROVIDERS: ADMIT Obstetrics & Gynecology; ATTEND Obstetrics & Gynecology
DX: O60.03 Preterm labor without delivery, third trimester (principal); Z3A.32 32 weeks gestation of pregnancy
CPT/HCPCS: 59025; A9270; J0702; J3105; J7120; 96360; 96372; G0378

== ENCOUNTER 2017-11-12 19:54 | Emergency (ER) | payer MEDICAID ==
--- NOTE | 2017-11-12 20:02 | EDM.PDOC ---
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 She says that her fasting blood sugar this morning was 148 and then she took it after breakfast and it went up to 190. This evening it was 199 and she was concerned so she came to the ER. She has no complaints of abdominal pain nausea vomiting or diarrhea and no fevers chills or upper respiratory symptoms. She is feeling good movement and is not feeling any contractions. She has no vaginal bleeding and no urinary complaints. She has no polyuria or polydipsia. She tells me that when her blood sugar is elevated or altered she just tries to adjust her diet but she has no medications that she uses for any of these elevations. Please note that the patient was on labor and delivery yesterday all day for contractions. She is a known patient of [facility] women's health Dr. Daley and she has a known twin gestation. Throughout the course of her care yesterday she did receive steroids. THis information has been confirmed with Dr. Victor. She was told yesterday that the steroids might bump her sugars that she should be prepared for that. Review of systems: As per history of present illness and below otherwise all systems reviewed and negative. Past medical history: As per history of present illness and as reviewed below otherwise noncontributory. Surgical history: As per history of present illness and as reviewed below otherwise noncontributory. Social history: No reported history of drug or alcohol abuse. Family history: As per history of present illness and as reviewed below otherwise noncontributory. Physical exam: Gen.: Well-developed well-nourished female who is nontoxic and vital signs have been reviewed by me. HEENT: Atraumatic, normocephalic, negative for conjunctival pallor or scleral icterus, mucous membranes moist, throat clear, neck supple, nontender, trachea midline. Lungs: Clear to auscultation, breath sounds equal bilaterally, chest nontender. Heart: S1S2, regular rate and rhythm no overt murmurs Abdomen: Soft, nondistended, nontender. Gravid uterus without any tenderness Pelvis: Stable nontender. Genitourinary: Deferred. Rectal: Deferred. Extremities: Atraumatic, negative for cords or calf pain. Neurovascular unremarkable. Neuro: Awake, alert, oriented. Cranial nerves II through XII unremarkable. Cerebellum unremarkable. Motor and sensory unremarkable throughout. Exam nonfocal. Diagnostics: nonstress test for labor and delivery, CBC CMP UA Therapeutics: IV IV fluids 1949: Case was discussed with Dr. Victor who feels that the patient can be seen in the emergency department and that labor and delivery can come and do a nonstress test 1953: Labor and delivery were notified and will come to the ER to do a nonstress test. 2125: After Valente is aware of all testing results and does not want to institute any medication at this time. NST was performed by L&D and was reported as reactive and I conveyed this information to Dr. Victor. She would like the patient to go home push hydration and to call the clinic on Tuesday for a reevaluation. I conveyed all this information to the patient. Impression: Elevated blood sugar with gestational diabetes after steroid use stable Definitive disposition and diagnosis as appropriate pending reevaluation and review of above. 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 History: Reports: None Musculoskeletal History: Reports: None Neurological History: Reports: None Psychiatric History: Reports: None Endocrine/Metabolic History: Reports: None Hematologic History: Reports: None Immunologic History: Reports: None Oncologic (Cancer) History: Reports: None Dermatologic History: Reports: None - Infectious Disease History Infectious Disease History: Reports: None - Past Surgical History Head Surgeries/Procedures: Reports: None HEENT Surgical History: Reports: Oral Surgery Social & Family History - Family History Family Medical History: Noncontributory Endocrine/Metabolic: Reports: Diabetes, type II - Tobacco Use Smoking Status *Q: Never Smoker Second Hand Smoke Exposure: No - Caffeine Use Caffeine Use: Reports: None - Alcohol Use Days Per Week of Alcohol Use: 1 Number of Drinks Per Day: 2 Total Drinks Per Week: 2 - Recreational Drug Use Recreational Drug Use: No - Living Situation & Occupation Living situation: Reports: with Significant Other Occupation: Employed ED ROS GENERAL - Review of Systems Review Of Systems: ROS reveals no pertinent complaints other than HPI. ED EXAM, GENERAL - Physical Exam Exam: See Below (see dictation) Course - Vital Signs Last Recorded V/S: Last Vital Signs Temp 36.7 C 11/12/17 19:54 Pulse 95 11/12/17 19:54 Resp 18 11/12/17 19:54 BP 153/79 H 11/12/17 19:54 Pulse Ox 98 11/12/17 19:54 - Orders/Labs/Meds Orders: Active Orders 24 hr Category Date Time Status Blood Glucose Check, Bedside [RC] ONETIME Care 11/12/17 20:00 Active NST [ Non Stress Test] [RC] PER UNIT ROUTINE Care 11/12/17 20:00 Active Sodium Chloride 0.9% [Saline Flush] Med 11/12/17 20:11 Active 10 ml FLUSH ASDIRECTED PRN Sodium Chloride 0.9% [Saline Flush] Med 11/12/17 20:11 Active 2.5 ml FLUSH ASDIRECTED PRN Saline Lock Insert [OM.PC] Stat Oth 11/12/17 20:11 Ordered Medication Orders Sodium Chloride (Saline Flush) 10 ml FLUSH ASDIRECTED PRN PRN Reason: Keep Vein Open Sodium Chloride (Saline Flush) 2.5 ml FLUSH ASDIRECTED PRN PRN Reason: Keep Vein Open Labs: Laboratory Tests 11/12/17 11/12/17 11/12/17 Range/Units 20:05 20:05 20:05 WBC 11.51 H (4.0-11.0) K/uL RBC 3.44 L (4.30-5.90) M/uL Hgb 10.1 L (12.0-16.0) g/dL Hct 30.8 L (36.0-46.0) % MCV 89.5 (80.0-98.0) fL MCH 29.4 (27.0-32.0) pg MCHC 32.8 (31.0-37.0) g/dL RDW Std Deviation 42.5 (28.0-62.0) fl RDW Coeff of Jr 13 (11.0-15.0) % Plt Count 310 (150-400) K/uL MPV 9.50 (7.40-12.00) fL Add Manual Diff YES Neutrophils % (Manual) 59 (48.0-80.0) % Band Neutrophils % 1 % Lymphocytes % (Manual) 30 (16.0-40.0) % Monocytes % (Manual) 10 (0.0-15.0) % Nucleated RBC % 0.0 /100WBC Absolute Seg Neuts 6.8 H (1.4-5.7) Band Neutrophils # 0.1 Lymphocytes # (Manual) 3.5 H (0.6-2.4) Monocytes # (Manual) 1.2 H (0.0-0.8) Nucleated RBCs # 0 K/uL Sodium 136 (136-145) mmol/L Potassium 3.8 (3.5-5.1) mmol/L Chloride 103 (98-107) mmol/L Carbon Dioxide 19.7 L (21.0-32.0) mmol/L BUN 9 (7.0-18.0) mg/dL Creatinine 0.7 (0.6-1.0) mg/dL Est Cr Clr Drug Dosing 127.17 mL/min Estimated GFR (MDRD) > 60.0 ml/min Glucose 172 H (74-106) mg/dL Calcium 9.5 (8.5-10.1) mg/dL Total Bilirubin 0.3 (0.2-1.0) mg/dL AST 31 (15-37) IU/L ALT 49 (14-63) IU/L Alkaline Phosphatase 129 H (46-116) U/L Total Protein 7.1 (6.4-8.2) g/dL Albumin 3.0 L (3.4-5.0) g/dL Globulin 4.1 H (2.0-3.5) g/dL Albumin/Globulin Ratio 0.7 L (1.3-2.8) Urine Color YELLOW Urine Appearance HAZY Urine pH 6.5 (5.0-8.0) Ur Specific [place] 1.010 (1.001-1.035) Urine Protein NEGATIVE (NEGATIVE) mg/dL Urine Glucose (UA) 100 H (NEGATIVE) mg/dL Urine Ketones NEGATIVE (NEGATIVE) mg/dL Urine Occult Blood TRACE-INTACT (NEGATIVE) Urine Nitrite NEGATIVE (NEGATIVE) Urine Bilirubin NEGATIVE (NEGATIVE) Urine Urobilinogen 0.2 (<2.0) EU/dL Ur Leukocyte Esterase NEGATIVE (NEGATIVE) Urine RBC 0-2 (0-2/HPF) Urine WBC 0-3 (0-5/HPF) Ur Epithelial Cells FEW (NONE-FEW) Urine Bacteria FEW (NEGATIVE) Meds: Medications Generic Name Dose Route Start Last Admin Trade Name Freq PRN Reason Stop Dose Admin Sodium Chloride 10 ml 11/12/17 20:11 Saline Flush FLUSH ASDIRECTED PRN Keep Vein Open Sodium Chloride 2.5 ml 11/12/17 20:11 Saline Flush FLUSH ASDIRECTED PRN Keep Vein Open Discontinued Medications Generic Name Dose Route Start Last Admin Trade Name Freq PRN Reason Stop Dose Admin Sodium Chloride 1,000 mls @ 999 mls/hr 11/12/17 20:11 11/12/17 20:17 Normal Saline IV 11/12/17 21:11 999 mls/hr STAT ONE Administration Departure - Departure Time of Disposition: 21:29 Disposition: Home, Self-Care 01 Condition: Good Clinical Impression: Hyperglycemia during - Discharge Information Referrals: PCP,None [Primary Care Provider] - Forms: ED Department Discharge Additional Instructions: The following information is given to patients seen in the emergency department who are being discharged to home. This information is to outline your options for follow-up care. We provide all patients seen in our emergency department with a follow-up referral. The need for follow-up, as well as the timing and circumstances, are variable depending upon the specifics of your emergency department visit. If you don't have a primary care physician on staff, we will provide you with a referral. We always advise you to contact your personal physician following an emergency department visit to inform them of the circumstance of the visit and for follow-up with them and/or the need for any referrals to a consulting specialist. The emergency department will also refer you to a specialist when appropriate. This referral assures that you have the opportunity for followup care with a specialist. All of these measure are taken in an effort to provide you with optimal care, which includes your followup. Under all circumstances we always encourage you to contact your private physician who remains a resource for coordinating your care. When calling for followup care, please make the office aware that this follow-up is from your recent emergency room visit. If for any reason you are refused follow-up, please contact the [facility] emergency department at and ask to speak to the emergency department charge nurse. [facility] [address] [address] Please push water and continue to monitor your blood sugar. Watch her diet as you have been doing and contact the clinic on Tuesday to be re-seen and reevaluated. Return to ER as needed and as discussed - My Orders Last 24 Hours: My Active Orders 11/12/17 20:00 Blood Glucose Check, Bedside [RC] ONETIME NST [ Non Stress Test] [RC] PER UNIT ROUTINE 11/12/17 20:11 Sodium Chloride 0.9% [Saline Flush] 10 ml FLUSH ASDIRECTED PRN Sodium Chloride 0.9% [Saline Flush] 2.5 ml FLUSH ASDIRECTED PRN Saline Lock Insert [OM.PC] Stat - Assessment/Plan Last 24 Hours: My Active Orders 11/12/17 20:00 Blood Glucose Check, Bedside [RC] ONETIME NST [ Non Stress Test] [RC] PER UNIT ROUTINE 11/12/17 20:11 Sodium Chloride 0.9% [Saline Flush] 10 ml FLUSH ASDIRECTED PRN Sodium Chloride 0.9% [Saline Flush] 2.5 ml FLUSH ASDIRECTED PRN Saline Lock Insert [OM.PC] Stat
[2017-11-12] MEDS ORDERED: Sodium Chloride 0.9% 2.5 ML Syringe FLUSH PRN (20:11)
[2017-11-12] MEDS ORDERED: Sodium Chloride 0.9% 10 ML Syringe FLUSH PRN (20:11)
[2017-11-12] MEDS ORDERED: Sodium Chloride 0.9% 1,000 ML IV ONE (20:11)
[2017-11-12 20:52] LABS: CHLORIDE,CL 103 mmol/L (98-107); SODIUM,NA 136 mmol/L (136-145)
[2017-11-13 04:47] VITALS: BP 123/79
== END 2017-11-12 21:45 | disposition home or self-care (01) ==
LOC: MW.ED 19:54
DX: O24.419 Gestational diabetes mellitus in pregnancy, unspecified control (principal); O30.003 Twin pregnancy, unspecified number of placenta and unspecified number of amniotic sacs, third trimester; Z3A.32 32 weeks gestation of pregnancy
CPT/HCPCS: 80053; 81001; 82962; 85025; 96360; 99283; J7040; 99284

== ENCOUNTER 2017-11-23 10:01 | Observation (INO) | payer MEDICAID ==
[2017-11-23] MEDS ORDERED: Misoprostol 200 MCG Tab PO PRN (10:03)
[2017-11-23] MEDS ORDERED: Tranexamic Acid 1,000 MG in Sodium Chloride 0.9% 100 ML IV PRN (10:03)
[2017-11-23] MEDS ORDERED: Carboprost Tromethamine 250 MCG/1 ML Amp IM PRN (10:03)
[2017-11-23] MEDS ORDERED: Butorphanol 1 MG/ML SDV IVPUSH PRN (10:03)
[2017-11-23] MEDS ORDERED: Water For Irrigation,Sterile 1,000 ML Container IRR PRN (10:03)
[2017-11-23] MEDS ORDERED: Lidocaine 1% 50 ML MDV INJECT PRN (10:03)
[2017-11-23] MEDS ORDERED: Methylergonovine 0.2 MG/1 ML Amp IM PRN (10:03)
[2017-11-23] MEDS ORDERED: Nalbuphine 10 MG/1 ML Vial IVPUSH PRN (10:03)
[2017-11-23] MEDS ORDERED: Lactated Ringers 1,000 ML IV SCH (10:15)
[2017-11-23] MEDS ORDERED: Oxytocin/0.9 % Sodium Chloride 30 UNIT/500 ML BAG IV SCH (10:15)
[2017-11-23] MEDS ORDERED: NIFEdipine 10 MG Cap PO ONE (10:54)
[2017-11-23] MEDS ORDERED: NIFEdipine 10 MG Cap ONE (10:56)
[2017-11-23 11:03] VITALS: BP 138/87
== END 2017-11-23 11:26 ==
LOC: MW.OBCHECK 10:01 → MW.OB 10:03 → MW.OBCHECK 10:44 → MW.OB 10:46
PROVIDERS: ADMIT Obstetrics & Gynecology; ATTEND Obstetrics & Gynecology
DX: O42.913 Preterm premature rupture of membranes, unspecified as to length of time between rupture and onset of labor, third trimester (principal); O30.043 Twin pregnancy, dichorionic/diamniotic, third trimester; O24.410 Gestational diabetes mellitus in pregnancy, diet controlled; Z3A.34 34 weeks gestation of pregnancy; Z79.899 Other long term (current) drug therapy
CPT/HCPCS: 36415; 59025; 85027; 86850; 86900; 86901; A9270; G0378

== ENCOUNTER 2017-12-02 23:00 | Emergency (ER) | payer MEDICAID ==
[2017-12-03 00:15] LABS: CHLORIDE,CL 107 mmol/L (98-107); SODIUM,NA 139 mmol/L (136-145)
--- NOTE | 2017-12-03 00:21 | EDM.PDOC ---
ED HPI GENERAL MEDICAL PROBLEM - General Chief Complaint: Lower Extremity Injury/Pain Stated Complaint: PT LEGS SWOLLEN Time Seen by Provider: 12/02/17 23:19 - History of Present Illness INITIAL COMMENTS - FREE TEXT/NARRATIVE: HISTORY AND PHYSICAL: History of present illness: Patient 22-year-old black female status post twin delivery last Tuesday presents now with inferior extremity edema she states this is new she denies chest pain shortness of breath denies headache visual disturbance or other concern. Review of systems: As per history of present illness and below otherwise all systems reviewed and negative. Past medical history: As per history of present illness and as reviewed below otherwise noncontributory. Surgical history: As per history of present illness and as reviewed below otherwise noncontributory. Social history: No reported history of drug or alcohol abuse. Family history: As per history of present illness and as reviewed below otherwise noncontributory. Physical exam: HEENT: Atraumatic, normocephalic, pupils reactive, negative for conjunctival pallor or scleral icterus, mucous membranes moist, throat clear, neck supple, nontender, trachea midline. Lungs: Clear to auscultation, breath sounds equal bilaterally, chest nontender. Heart: S1S2, regular, negative for clicks, rubs, or JVD. Abdomen: Soft, nondistended, nontender. Negative for masses or hepatosplenomegaly. Negative for costovertebral tenderness. Pelvis: Stable nontender. Genitourinary: Deferred. Rectal: Deferred. Extremities: Atraumatic, negative for cords or calf pain. Neurovascular unremarkable. 2+ peripheral edema noted Neuro: Awake, alert, oriented. Cranial nerves II through XII unremarkable. Cerebellum unremarkable. Motor and sensory unremarkable throughout. Exam nonfocal. Diagnostics: CBC CMP UA BNP chest x-ray EKG Therapeutics: IV Impression: #1 peripheral edema #2 twin delivery Definitive disposition and diagnosis as appropriate pending reevaluation and review of above. 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 Musculoskeletal History: Reports: None Neurological History: Reports: None Psychiatric History: Reports: None Endocrine/Metabolic History: Reports: None Hematologic History: Reports: None Immunologic History: Reports: None Oncologic (Cancer) History: Reports: None Dermatologic History: Reports: None - Infectious Disease History Infectious Disease History: Reports: None - Past Surgical History Head Surgeries/Procedures: Reports: None HEENT Surgical History: Reports: Oral Surgery Other HEENT Surgeries/Procedures: Oral abcess removed; wisdom teeth removed Social & Family History - Family History Family Medical History: Noncontributory Cardiac: Reports: Heart Failure, High Cholesterol, Hypertension : Reports: Other (See Below) Other Family History: Kidney failure OBGYN: Reports: Endocrine/Metabolic: Reports: Diabetes, type II - Tobacco Use Smoking Status *Q: Never Smoker Second Hand Smoke Exposure: No - Caffeine Use Caffeine Use: Reports: None - Alcohol Use Days Per Week of Alcohol Use: 1 Number of Drinks Per Day: 2 Total Drinks Per Week: 2 - Recreational Drug Use Recreational Drug Use: No - Living Situation & Occupation Living situation: Reports: with Significant Other Occupation: Employed Review of Systems - Review of Systems Review Of Systems: ROS reveals no pertinent complaints other than HPI. ED EXAM, GENERAL - Physical Exam Exam: See Below (See dictation) Course - Vital Signs Last Recorded V/S: Last Vital Signs Temp 37.2 C 12/02/17 23:34 Pulse 75 12/02/17 23:34 Resp 18 12/02/17 23:34 BP 148/90 H 12/02/17 23:34 Pulse Ox 98 12/02/17 23:34 - Orders/Labs/Meds Orders: Active Orders 24 hr Category Date Time Status EKG Documentation Completion [RC] STAT Care 12/03/17 00:21 Active Chest 1V Frontal [CR] Stat Exams 12/03/17 00:22 Taken UA W/MICROSCOPIC [URIN] Stat Lab 12/03/17 00:05 Ordered Labs: Laboratory Tests 12/02/17 12/02/17 12/02/17 Range/Units 23:52 23:52 23:52 WBC 8.53 (4.0-11.0) K/uL RBC 3.21 L (4.30-5.90) M/uL Hgb 9.4 L (12.0-16.0) g/dL Hct 28.7 L (36.0-46.0) % MCV 89.4 (80.0-98.0) fL MCH 29.3 (27.0-32.0) pg MCHC 32.8 (31.0-37.0) g/dL RDW Std Deviation 46.5 (28.0-62.0) fl RDW Coeff of Jr 14 (11.0-15.0) % Plt Count 314 (150-400) K/uL MPV 8.60 (7.40-12.00) fL Neut % (Auto) 55.5 (48.0-80.0) % Lymph % (Auto) 35.6 (16.0-40.0) % [place] % (Auto) 6.9 (0.0-15.0) % Eos % (Auto) 1.8 (0.0-7.0) % Baso % (Auto) 0.2 (0.0-1.5) % Neut # (Auto) 4.7 (1.4-5.7) K/uL Lymph # (Auto) 3.0 H (0.6-2.4) K/uL [place] # (Auto) 0.6 (0.0-0.8) K/uL Eos # (Auto) 0.2 (0.0-0.7) K/uL Baso # (Auto) 0.0 (0.0-0.1) K/uL Nucleated RBC % 0.0 /100WBC Nucleated RBCs # 0 K/uL Sodium 139 (136-145) mmol/L Potassium 3.7 (3.5-5.1) mmol/L Chloride 107 (98-107) mmol/L Carbon Dioxide 20.4 L (21.0-32.0) mmol/L BUN 11 (7.0-18.0) mg/dL Creatinine 0.6 (0.6-1.0) mg/dL Est Cr Clr Drug Dosing 148.36 mL/min Estimated GFR (MDRD) > 60.0 ml/min Glucose 73 L (74-106) mg/dL Calcium 8.4 L (8.5-10.1) mg/dL Total Bilirubin 0.2 (0.2-1.0) mg/dL AST 19 (15-37) IU/L ALT 29 (14-63) IU/L Alkaline Phosphatase 105 (46-116) U/L B-Natriuretic Peptide 175 H (<100) PG/ML Total Protein 6.3 L (6.4-8.2) g/dL Albumin 2.7 L (3.4-5.0) g/dL Globulin 3.6 H (2.0-3.5) g/dL Albumin/Globulin Ratio 0.8 L (1.3-2.8) Urine Color Urine Appearance Urine pH (5.0-8.0) Ur Specific [place] (1.001-1.035) Urine Protein (NEGATIVE) mg/dL Urine Glucose (UA) (NEGATIVE) mg/dL Urine Ketones (NEGATIVE) mg/dL Urine Occult Blood (NEGATIVE) Urine Nitrite (NEGATIVE) Urine Bilirubin (NEGATIVE) Urine Urobilinogen (<2.0) EU/dL Ur Leukocyte Esterase (NEGATIVE) Urine RBC (0-2/HPF) Urine WBC (0-5/HPF) Ur Epithelial Cells (NONE-FEW) Urine Bacteria (NEGATIVE) 12/03/17 Range/Units 00:05 WBC (4.0-11.0) K/uL RBC (4.30-5.90) M/uL Hgb (12.0-16.0) g/dL Hct (36.0-46.0) % MCV (80.0-98.0) fL MCH (27.0-32.0) pg MCHC (31.0-37.0) g/dL RDW Std Deviation (28.0-62.0) fl RDW Coeff of Jr (11.0-15.0) % Plt Count (150-400) K/uL MPV (7.40-12.00) fL Neut % (Auto) (48.0-80.0) % Lymph % (Auto) (16.0-40.0) % [place] % (Auto) (0.0-15.0) % Eos % (Auto) (0.0-7.0) % Baso % (Auto) (0.0-1.5) % Neut # (Auto) (1.4-5.7) K/uL Lymph # (Auto) (0.6-2.4) K/uL [place] # (Auto) (0.0-0.8) K/uL Eos # (Auto) (0.0-0.7) K/uL Baso # (Auto) (0.0-0.1) K/uL Nucleated RBC % /100WBC Nucleated RBCs # K/uL Sodium (136-145) mmol/L Potassium (3.5-5.1) mmol/L Chloride (98-107) mmol/L Carbon Dioxide (21.0-32.0) mmol/L BUN (7.0-18.0) mg/dL Creatinine (0.6-1.0) mg/dL Est Cr Clr Drug Dosing mL/min Estimated GFR (MDRD) ml/min Glucose (74-106) mg/dL Calcium (8.5-10.1) mg/dL Total Bilirubin (0.2-1.0) mg/dL AST (15-37) IU/L ALT (14-63) IU/L Alkaline Phosphatase (46-116) U/L B-Natriuretic Peptide (<100) PG/ML Total Protein (6.4-8.2) g/dL Albumin (3.4-5.0) g/dL Globulin (2.0-3.5) g/dL Albumin/Globulin Ratio (1.3-2.8) Urine Color YELLOW Urine Appearance SLT CLOUDY Urine pH 6.0 (5.0-8.0) Ur Specific [place] 1.020 (1.001-1.035) Urine Protein NEGATIVE (NEGATIVE) mg/dL Urine Glucose (UA) NEGATIVE (NEGATIVE) mg/dL Urine Ketones TRACE H (NEGATIVE) mg/dL Urine Occult Blood LARGE H (NEGATIVE) Urine Nitrite NEGATIVE (NEGATIVE) Urine Bilirubin NEGATIVE (NEGATIVE) Urine Urobilinogen 0.2 (<2.0) EU/dL Ur Leukocyte Esterase SMALL (NEGATIVE) Urine RBC 10-12 (0-2/HPF) Urine WBC 1-2 (0-5/HPF) Ur Epithelial Cells FEW (NONE-FEW) Urine Bacteria FEW (NEGATIVE) Departure - Departure Time of Disposition: 01:47 Disposition: Home, Self-Care 01 Condition: Good Clinical Impression: Mild peripheral edema - Discharge Information Forms: ED Department Discharge Additional Instructions: The following information is given to patients seen in the emergency department who are being discharged to home. This information is to outline your options for follow-up care. We provide all patients seen in our emergency department with a follow-up referral. The need for follow-up, as well as the timing and circumstances, are variable depending upon the specifics of your emergency department visit. If you don't have a primary care physician on staff, we will provide you with a referral. We always advise you to contact your personal physician following an emergency department visit to inform them of the circumstance of the visit and for follow-up with them and/or the need for any referrals to a consulting specialist. The emergency department will also refer you to a specialist when appropriate. This referral assures that you have the opportunity for followup care with a specialist. All of these measure are taken in an effort to provide you with optimal care, which includes your followup. Under all circumstances we always encourage you to contact your private physician who remains a resource for coordinating your care. When calling for followup care, please make the office aware that this follow-up is from your recent emergency room visit. If for any reason you are refused follow-up, please contact the [facility] emergency department at and asked to speak to the emergency department charge nurse. Follow-up OUTSOLE BEVELER call to schedule appointment Tuesday return as needed as discussed - My Orders Last 24 Hours: My Active Orders 12/03/17 00:05 UA W/MICROSCOPIC [URIN] Stat 12/03/17 00:21 EKG Documentation Completion [RC] STAT 12/03/17 00:22 Chest 1V Frontal [CR] Stat - Assessment/Plan Last 24 Hours: My Active Orders 12/03/17 00:05 UA W/MICROSCOPIC [URIN] Stat 12/03/17 00:21 EKG Documentation Completion [RC] STAT 12/03/17 00:22 Chest 1V Frontal [CR] Stat
[2017-12-03 02:54] VITALS: BP 143/85
--- NOTE | 2017-12-05 10:57 | CR ---
EXAM DATE: 12/02/17 PATIENT'S AGE: 22 Patient: Zack JONES Facility: [place], [place] Site . Site : 1995 Study: XRay Chest [id number] 12:41:16 AM Ordering Physician: Toya Matthew Final Report: INDICATION: Chest pain and shortness of breath TECHNIQUE: Chest 1 view COMPARISON: None FINDINGS: Cardiovascular and mediastinum: Heart size and vasculature are normal in caliber and appearance. Lungs and pleural spaces: Lungs are clear. No sign of infiltrate or mass. No sign of pleural effusion. No pneumothorax. Bones and soft tissues: No significant findings. IMPRESSION: Unremarkable chest. Dictated by Ken Petty MD @ Dec 03 2017 12:47AM (Electronic Signature) Report Signed by Proxy. ALESSIA
== END 2017-12-03 01:50 | disposition home or self-care (01) ==
LOC: MW.ED 23:00
DX: O12.05 Gestational edema, complicating the puerperium (principal)
CPT/HCPCS: 36415; 71045; 71045-26; 80053; 81001; 83880; 85025; 93005; 99283; 99284-25

== ENCOUNTER 2018-02-20 00:15 | Emergency (ER) | payer SELFPAY ==
[2018-02-20 00:29] VITALS: BP 124/78
[2018-02-20] MEDS ORDERED: Sodium Chloride 0.9% 1,000 ML IV ONE (00:29)
[2018-02-20] MEDS ORDERED: Ondansetron 4 MG/2 ML SDV IVPUSH ONE (00:29)
[2018-02-20] MEDS ORDERED: Ketorolac 30 MG/ML SDV IVPUSH ONE (00:29)
--- NOTE | 2018-02-20 00:30 | EDM.PDOC ---
ED HPI GENERAL MEDICAL PROBLEM - General Chief Complaint: Genitourinary Problem Stated Complaint: STOMACH PAINS Time Seen by Provider: 02/20/18 00:30 Source of Information: Reports: Patient - History of Present Illness INITIAL COMMENTS - FREE TEXT/NARRATIVE: HISTORY AND PHYSICAL: History of present illness: [Patient presents with low back pain and abdominal pain lower abdominal pain she rates 4 out of 10 nonradiating which has been present off and on since 3 months prior, , she states the back pain is similar and has been present since epidural was provided during labor She states that she has no fever nausea vomiting chills sweats no chest pain shortness breath headache dizziness or palpitation no bowel or urine symptoms] Review of systems: As per history of present illness and below otherwise all systems reviewed and negative. Past medical history: As per history of present illness and as reviewed below otherwise noncontributory. Surgical history: As per history of present illness and as reviewed below otherwise noncontributory. Social history: No reported history of drug or alcohol abuse. Family history: As per history of present illness and as reviewed below otherwise noncontributory. Physical exam: HEENT: Atraumatic, normocephalic, pupils reactive, negative for conjunctival pallor or scleral icterus, mucous membranes moist, throat clear, neck supple, nontender, trachea midline. Lungs: Clear to auscultation, breath sounds equal bilaterally, chest nontender. Heart: S1S2, regular, negative for clicks, rubs, or JVD. Abdomen: Soft, nondistended, diffuse nonfocal tenderness of the abdomen no guarding or rebound Negative for masses or hepatosplenomegaly. Negative for costovertebral tenderness. Pelvis: Stable nontender. Genitourinary: Deferred. Rectal: Deferred. Extremities: Atraumatic, negative for cords or calf pain. Neurovascular unremarkable. Neuro: Awake, alert, oriented. Cranial nerves II through XII unremarkable. Cerebellum unremarkable. Motor and sensory unremarkable throughout. Exam nonfocal. Diagnostics: [CBC CMP UA hCG CT abdomen pelvis no contrast ] Therapeutics: [1 L normal saline Toradol 30 mg IV Zofran Pain improved to resolved with above patient is currently sleeping with extended stay here in the ER ] Follow-up with OB gynecology Toradol 10 mg by mouth every 8 when necessary #15 no refill Impression: [ physiologic cyst left adnexa ] Definitive disposition and diagnosis as appropriate pending reevaluation and review of above. 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 Musculoskeletal History: Reports: None Neurological History: Reports: None Psychiatric History: Reports: None Endocrine/Metabolic History: Reports: None Hematologic History: Reports: None Immunologic History: Reports: None Oncologic (Cancer) History: Reports: None Dermatologic History: Reports: None - Infectious Disease History Infectious Disease History: Reports: None - Past Surgical History Head Surgeries/Procedures: Reports: None HEENT Surgical History: Reports: Oral Surgery Other HEENT Surgeries/Procedures: Oral abcess removed; wisdom teeth removed Social & Family History - Family History Family Medical History: Noncontributory Cardiac: Reports: Heart Failure, High Cholesterol, Hypertension : Reports: Other (See Below) Other Family History: Kidney failure OBGYN: Reports: Endocrine/Metabolic: Reports: Diabetes, type II - Tobacco Use Smoking Status *Q: Never Smoker - Caffeine Use Caffeine Use: Reports: None - Living Situation & Occupation Living situation: Reports: with Significant Other Occupation: Employed ED ROS GENERAL - Review of Systems Review Of Systems: See Below ED EXAM, GENERAL - Physical Exam Exam: See Below Course - Vital Signs Last Recorded V/S: Last Vital Signs Temp 98.1 F 02/20/18 00:27 Pulse 77 02/20/18 00:27 Resp 18 02/20/18 00:27 BP 124/78 02/20/18 00:27 Pulse Ox 98 02/20/18 00:27 - Orders/Labs/Meds Orders: Active Orders 24 hr Category Date Time Status Abdomen Pelvis wo Cont [CT] Stat Exams 02/20/18 01:06 Taken CULTURE URINE [RM] Stat Lab 02/20/18 00:36 Received HCG QUALITATIVE,URINE [URCHEM] Stat Lab 02/20/18 00:36 Ordered UA W/MICROSCOPIC [URIN] Stat Lab 02/20/18 00:36 Ordered Labs: Laboratory Tests 02/20/18 02/20/18 02/20/18 Range/Units 00:36 00:36 00:45 WBC 9.99 (4.0-11.0) K/uL RBC 4.10 L (4.30-5.90) M/uL Hgb 11.9 L (12.0-16.0) g/dL Hct 36.0 (36.0-46.0) % MCV 87.8 (80.0-98.0) fL MCH 29.0 (27.0-32.0) pg MCHC 33.1 (31.0-37.0) g/dL RDW Std Deviation 44.7 (28.0-62.0) fl RDW Coeff of Jr 14 (11.0-15.0) % Plt Count 362 (150-400) K/uL MPV 9.30 (7.40-12.00) fL Neut % (Auto) 49.5 (48.0-80.0) % Lymph % (Auto) 42.9 H (16.0-40.0) % Sully % (Auto) 6.1 (0.0-15.0) % Eos % (Auto) 1.2 (0.0-7.0) % Baso % (Auto) 0.3 (0.0-1.5) % Neut # (Auto) 4.9 (1.4-5.7) K/uL Lymph # (Auto) 4.3 H (0.6-2.4) K/uL Sully # (Auto) 0.6 (0.0-0.8) K/uL Eos # (Auto) 0.1 (0.0-0.7) K/uL Baso # (Auto) 0.0 (0.0-0.1) K/uL Nucleated RBC % 0.0 /100WBC Nucleated RBCs # 0 K/uL Sodium (136-145) mmol/L Potassium (3.5-5.1) mmol/L Chloride (98-107) mmol/L Carbon Dioxide (21.0-32.0) mmol/L BUN (7.0-18.0) mg/dL Creatinine (0.6-1.0) mg/dL Est Cr Clr Drug Dosing mL/min Estimated GFR (MDRD) ml/min Glucose (74-106) mg/dL Calcium (8.5-10.1) mg/dL Total Bilirubin (0.2-1.0) mg/dL AST (15-37) IU/L ALT (14-63) IU/L Alkaline Phosphatase (46-116) U/L Total Protein (6.4-8.2) g/dL Albumin (3.4-5.0) g/dL Globulin (2.0-3.5) g/dL Albumin/Globulin Ratio (1.3-2.8) Lipase (73-393) U/L Urine Color YELLOW Urine Appearance HAZY Urine pH 6.0 (5.0-8.0) Ur Specific Bruno >= 1.030 (1.001-1.035) Urine Protein NEGATIVE (NEGATIVE) mg/dL Urine Glucose (UA) NEGATIVE (NEGATIVE) mg/dL Urine Ketones NEGATIVE (NEGATIVE) mg/dL Urine Occult Blood TRACE-INTACT (NEGATIVE) Urine Nitrite NEGATIVE (NEGATIVE) Urine Bilirubin NEGATIVE (NEGATIVE) Urine Urobilinogen 0.2 (<2.0) EU/dL Ur Leukocyte Esterase NEGATIVE (NEGATIVE) Urine RBC 1-2 (0-2/HPF) Urine WBC 0-2 (0-5/HPF) Ur Epithelial Cells MODERATE (NONE-FEW) Urine Bacteria 1+ H (NEGATIVE) Urine HCG, Qual NEGATIVE (NEGATIVE) 02/20/18 Range/Units 00:45 WBC (4.0-11.0) K/uL RBC (4.30-5.90) M/uL Hgb (12.0-16.0) g/dL Hct (36.0-46.0) % MCV (80.0-98.0) fL MCH (27.0-32.0) pg MCHC (31.0-37.0) g/dL RDW Std Deviation (28.0-62.0) fl RDW Coeff of Jr (11.0-15.0) % Plt Count (150-400) K/uL MPV (7.40-12.00) fL Neut % (Auto) (48.0-80.0) % Lymph % (Auto) (16.0-40.0) % Sully % (Auto) (0.0-15.0) % Eos % (Auto) (0.0-7.0) % Baso % (Auto) (0.0-1.5) % Neut # (Auto) (1.4-5.7) K/uL Lymph # (Auto) (0.6-2.4) K/uL Sully # (Auto) (0.0-0.8) K/uL Eos # (Auto) (0.0-0.7) K/uL Baso # (Auto) (0.0-0.1) K/uL Nucleated RBC % /100WBC Nucleated RBCs # K/uL Sodium 140 (136-145) mmol/L Potassium 3.7 (3.5-5.1) mmol/L Chloride 104 (98-107) mmol/L Carbon Dioxide 23.3 (21.0-32.0) mmol/L BUN 21 H (7.0-18.0) mg/dL Creatinine 0.9 (0.6-1.0) mg/dL Est Cr Clr Drug Dosing 98.91 mL/min Estimated GFR (MDRD) > 60.0 ml/min Glucose 103 (74-106) mg/dL Calcium 9.3 (8.5-10.1) mg/dL Total Bilirubin 0.2 (0.2-1.0) mg/dL AST 17 (15-37) IU/L ALT 21 (14-63) IU/L Alkaline Phosphatase 92 (46-116) U/L Total Protein 8.1 (6.4-8.2) g/dL Albumin 4.0 (3.4-5.0) g/dL Globulin 4.1 H (2.0-3.5) g/dL Albumin/Globulin Ratio 1.0 L (1.3-2.8) Lipase 197 (73-393) U/L Urine Color Urine Appearance Urine pH (5.0-8.0) Ur Specific Bruno (1.001-1.035) Urine Protein (NEGATIVE) mg/dL Urine Glucose (UA) (NEGATIVE) mg/dL Urine Ketones (NEGATIVE) mg/dL Urine Occult Blood (NEGATIVE) Urine Nitrite (NEGATIVE) Urine Bilirubin (NEGATIVE) Urine Urobilinogen (<2.0) EU/dL Ur Leukocyte Esterase (NEGATIVE) Urine RBC (0-2/HPF) Urine WBC (0-5/HPF) Ur Epithelial Cells (NONE-FEW) Urine Bacteria (NEGATIVE) Urine HCG, Qual (NEGATIVE) Meds: Medications Discontinued Medications Generic Name Dose Route Start Last Admin Trade Name Casimiro PRN Reason Stop Dose Admin Sodium Chloride 1,000 mls @ 999 mls/hr 02/20/18 00:29 02/20/18 00:38 Normal Saline IV 02/20/18 01:29 999 mls/hr STAT ONE Administration Ketorolac Tromethamine 30 mg 02/20/18 00:29 02/20/18 00:39 Toradol IVPUSH 02/20/18 00:30 30 mg ONETIME ONE Administration Ondansetron HCl 8 mg 02/20/18 00:29 02/20/18 00:39 Zofran IVPUSH 02/20/18 00:30 8 mg ONETIME ONE Administration Departure - Departure Time of Disposition: 03:15 Disposition: Home, Self-Care 01 Condition: Good Clinical Impression: Physiological ovarian cysts - Discharge Information Referrals: PCP,None [Primary Care Provider] - Forms: ED Department Discharge Additional Instructions: Medication as prescribed Return if symptoms persist or worsen Follow-up with OB gynecology, call for appointment schedule appropriate follow- up with numbers [place] [address] [facility] [address] [place] [address] The following information is given to patients seen in the emergency department who are being discharged to home. This information is to outline your options for follow-up care. We provide all patients seen in our emergency department with a follow-up referral. The need for follow-up, as well as the timing and circumstances, are variable depending upon the specifics of your emergency department visit. If you don't have a primary care physician on staff, we will provide you with a referral. We always advise you to contact your personal physician following an emergency department visit to inform them of the circumstance of the visit and for follow-up with them and/or the need for any referrals to a consulting specialist. The emergency department will also refer you to a specialist when appropriate. This referral assures that you have the opportunity for follow-up care with a specialist. All of these measure are taken in an effort to provide you with optimal care, which includes your follow-up. Under all circumstances we always encourage you to contact your private physician who remains a resource for coordinating your care. When calling for follow-up care, please make the office aware that this follow-up is from your recent emergency room visit. If for any reason you are refused follow-up, please contact the [facility] emergency department at and asked to speak to the emergency department charge nurse. - My Orders Last 24 Hours: My Active Orders 02/20/18 00:36 CULTURE URINE [RM] Stat HCG QUALITATIVE,URINE [URCHEM] Stat UA W/MICROSCOPIC [URIN] Stat 02/20/18 01:06 Abdomen Pelvis wo Cont [CT] Stat - Assessment/Plan Last 24 Hours: My Active Orders 02/20/18 00:36 CULTURE URINE [RM] Stat HCG QUALITATIVE,URINE [URCHEM] Stat UA W/MICROSCOPIC [URIN] Stat 02/20/18 01:06 Abdomen Pelvis wo Cont [CT] Stat
[2018-02-20 01:17] LABS: CHLORIDE,CL 104 mmol/L (98-107); SODIUM,NA 140 mmol/L (136-145)
--- NOTE | 2018-02-20 16:48 | CT ---
EXAM DATE: 02/20/18 PATIENT'S AGE: 22 Patient: Zack BERRIOS Facility: [place], [place] Site . Site : 1995 Study: CT Abdomen/Pelvis WO CONT [id number] 1:29:54 AM Ordering Physician: Divine Rosales Final Report: INDICATION: One-month history of abdominal pain radiating into the back TECHNIQUE: CT abdomen and pelvis without contrast. COMPARISON: [facility] March 07, 2017 FINDINGS: Lower chest: Unremarkable. Liver: Unremarkable. Spleen: Unremarkable. Pancreas: Unremarkable. Gallbladder and bile ducts: Unremarkable. Adrenal glands: Unremarkable. Kidneys: Unremarkable. No kidney or ureteral stones and no hydronephrosis. GI tract: Unremarkable. Appendix is normal. Vascular structures: Unremarkable. Lymph nodes: Unremarkable. Miscellaneous: Unremarkable. No free air or significant free fluid. Pelvic Organs: 3.7 x 2.7 cm hypodense lesion in the left adnexa. Bones: Unremarkable for age. IMPRESSION: No renal stone or acute intra-abdominal process identified. Hypodense lesion in the left adnexal likely represents a physiologic cyst. Pelvic ultrasound may be useful for further evaluation if clinically indicated. Please note that all CT scans at this facility use dose modulation, iterative reconstruction, and/or weight-based dosing when appropriate to reduce radiation dose to as low as reasonably achievable. Dictated by Alma Obando MD @ Feb 20 2018 2:09AM (Electronic Signature) Report Signed by Proxy. ALESSIA
== END 2018-02-20 03:37 | disposition home or self-care (01) ==
LOC: MW.ED 00:15
DX: N83.209 Unspecified ovarian cyst, unspecified side (principal)
CPT/HCPCS: 36415; 74176; 80053; 81001; 81025; 83690; 85025; 87086; 96361; 96374; 96375; 99284; J1885; J2405; J7040; 99283

== ENCOUNTER 2018-06-09 10:25 | Emergency (ER) | payer OTHER ==
[2018-06-09] MEDS ORDERED: Ketorolac 60 MG/2 ML SDV IM ONE (11:05)
--- NOTE | 2018-06-09 11:09 | EDM.PDOC ---
ED HPI GENERAL MEDICAL PROBLEM - General Chief Complaint: Back Pain or Injury Stated Complaint: BACK PAIN Time Seen by Provider: 06/09/18 10:39 - History of Present Illness INITIAL COMMENTS - FREE TEXT/NARRATIVE: HISTORY AND PHYSICAL: History of present illness: The patient is a 22-year-old female who presents to the ER with thoracic back pain. The patient reports she woke up with this pain. She describes it as sharp and rates it a 10 out of 10 without radiation. She denies any numbness, tingling, or weakness in extremities. She reports that she is in the process of moving and has been lifting a lot of heavy boxes lately. She has not taken anything for pain this morning. She has no history of trauma, injury. She reports that is healthy and has no significant past medical history. Review of systems: As per history of present illness and below otherwise all systems reviewed and negative. Past medical history: As per history of present illness and as reviewed below otherwise noncontributory. Surgical history: As per history of present illness and as reviewed below otherwise noncontributory. Social history: No reported history of drug or alcohol abuse. Family history: As per history of present illness and as reviewed below otherwise noncontributory. Physical exam: HEENT: Atraumatic, normocephalic, pupils reactive, negative for conjunctival pallor or scleral icterus, mucous membranes moist, throat clear, neck supple, nontender, trachea midline. Lungs: Clear to auscultation, breath sounds equal bilaterally, chest nontender. Heart: S1S2, regular, negative for clicks, rubs, or JVD. Abdomen: Soft, nondistended, nontender. Negative for masses or hepatosplenomegaly. Negative for costovertebral tenderness. Pelvis: Stable nontender. Genitourinary: Deferred. Rectal: Deferred. Extremities: Atraumatic, negative for cords or calf pain. Neurovascular unremarkable. MSK- tenderness to palpation of thoracic spine and paraspinal muscles, pain with flexion but full ROM. Strength 5/5 in all extremities. Neuro: Awake, alert, oriented. Cranial nerves II through XII unremarkable. Cerebellum unremarkable. Motor and sensory unremarkable throughout. Exam nonfocal. Diagnostics: [none] Therapeutics: [Toradol] Impression: [thoracic back pain with muscle spasm] Plan: [Patient had relief with Toradol. Will discharge home with prescription for flexeril. She may use tylenol or ibuprofen for pain. May try ice/heat at home. Follow up with PCP.] Definitive disposition and diagnosis as appropriate pending reevaluation and review of above. 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: Reports: - Past Surgical History HEENT Surgical History: Reports: Other (See Below) Other HEENT Surgeries/Procedures: cyst removed out of mouth Social & Family History - Tobacco Use Smoking Status *Q: Never Smoker - Caffeine Use Caffeine Use: Reports: Coffee - Recreational Drug Use Recreational Drug Use: Yes ED ROS GENERAL - Review of Systems Review Of Systems: See Below (see dictation) ED EXAM, GENERAL - Physical Exam Exam: See Below (see dictation) Course - Vital Signs Last Recorded V/S: Last Vital Signs Temp 97.2 F 06/09/18 10:51 Pulse 74 06/09/18 10:51 Resp 20 06/09/18 10:51 BP 119/67 06/09/18 10:51 Pulse Ox 99 06/09/18 10:51 - Orders/Labs/Meds Meds: Medications Discontinued Medications Generic Name Dose Route Start Last Admin Trade Name Freq PRN Reason Stop Dose Admin Ketorolac Tromethamine 60 mg 06/09/18 11:05 06/09/18 11:18 Toradol IM 06/09/18 11:06 60 mg ONETIME ONE Administration Departure - Departure Time of Disposition: 11:30 Disposition: Home, Self-Care 01 Condition: Good Clinical Impression: Spasm of thoracic back muscle - Discharge Information *PRESCRIPTION DRUG MONITORING PROGRAM REVIEWED*: No *COPY OF PRESCRIPTION DRUG MONITORING REPORT IN PATIENT BARBARA: No Prescriptions: Cyclobenzaprine [Flexeril] 10 mg PO TID PRN 5 Days #15 tab PRN Reason: Muscle Spasm Instructions: Muscle Cramps and Spasms, Naat-[id number], Back Pain, Adult, Easy-to -Read Referrals: PCP,None [Primary Care Provider] - Forms: ED Department Discharge Additional Instructions: My general discharge The following information is given to patients seen in the emergency department who are being discharged to home. This information is to outline your options for follow-up care. We provide all patients seen in our emergency department with a follow-up referral. The need for follow-up, as well as the timing and circumstances, are variable depending upon the specifics of your emergency department visit. If you don't have a primary care physician on staff, we will provide you with a referral. We always advise you to contact your personal physician following an emergency department visit to inform them of the circumstance of the visit and for follow-up with them and/or the need for any referrals to a consulting specialist. The emergency department will also refer you to a specialist when appropriate. This referral assures that you have the opportunity for follow-up care with a specialist. All of these measure are taken in an effort to provide you with optimal care, which includes your follow-up. Under all circumstances we always encourage you to contact your private physician who remains a resource for coordinating your care. When calling for follow-up care, please make the office aware that this follow-up is from your recent emergency room visit. If for any reason you are refused follow-up, please contact the [facility] Emergency Department at and asked to speak to the emergency department charge nurse. My Primary Care [facility] [address] [place] [phone] A prescription for Flexeril was sent into your pharmacy. You may use this up to 3x a day for muscle spasm. It may make you tired. You may use Tylenol or ibuprofen for pain. You can try ice or heat on the affected area. Follow up with your primary care provider.
[2018-06-09 17:25] VITALS: BP 126/73
== END 2018-06-09 11:40 | disposition home or self-care (01) ==
LOC: MW.ED 10:25 → MERGE 10:25 → MW.ED 11:40
DX: M62.830 Muscle spasm of back (principal); M54.6 Pain in thoracic spine
CPT/HCPCS: 96372; 99283; J1885

== ENCOUNTER 2018-10-16 19:46 | Emergency (ER) | payer MEDICAID, OTHER ==
--- NOTE | 2018-10-16 20:10 | EDM.PDOC ---
ED HPI GENERAL MEDICAL PROBLEM - General Chief Complaint: General Stated Complaint: COUGH, HEADACHE, CHEST PAIN Time Seen by Provider: 10/16/18 19:55 - History of Present Illness INITIAL COMMENTS - FREE TEXT/NARRATIVE: HISTORY AND PHYSICAL: History of present illness: The patient is a 23-year-old female with no medical history and presents with one to 2 weeks of cough productive of some phlegm, white and occasionally yellow , sinus congestion and drainage sore throat because of the cough bodyaches and some epigastric and lower chest wall discomfort that started today. She's not having vomiting or diarrhea and she did not get her flu shot this year. She says that her two-month well-baby got a cold and then everyone else in the household got sick. She has not been taking much [id number]-rhl-[id number] for these symptoms but she has been hydrating. She has no abdominal pain no urinary symptoms and denies . She has no chest pain or shortness of breath on my interview Review of systems: As per history of present illness and below otherwise all systems reviewed and negative. Past medical history: As per history of present illness and as reviewed below otherwise noncontributory. Surgical history: As per history of present illness and as reviewed below otherwise noncontributory. Social history: No reported history of drug or alcohol abuse. Family history: As per history of present illness and as reviewed below otherwise noncontributory. Physical exam: Dental: Well-developed well-nourished female who is overweight and nontoxic. She has a nasal quality to voice and vital signs are reviewed by me HEENT: Atraumatic, normocephalic, pupils reactive, negative for conjunctival pallor or scleral icterus, mucous membranes moist, throat clear, neck supple, nontender, trachea midline. No cervical adenopathy or nuchal rigidity Lungs: Clear to auscultation, breath sounds equal bilaterally, chest nontender. There is no wheezing stridor or work of breathing but there are diminished breath sounds throughout both farrell Heart: S1S2, regular and rhythm no overt murmurs Abdomen: Soft, nondistended, nontender. NABS Pelvis: Deferred Genitourinary: Deferred. Rectal: Deferred. Extremities: Atraumatic, negative for cords or calf pain. Neurovascular unremarkable. Neuro: Awake, alert, oriented. Cranial nerves II through XII unremarkable. Cerebellum unremarkable. Motor and sensory unremarkable throughout. Exam nonfocal. Diagnostics: Influenza chest x-ray Therapeutics: Impression: Upper respiratory tract infection with sinusitis subacute Definitive disposition and diagnosis as appropriate pending reevaluation and review of above. Epigastric Pain Score (Numeric/FACES): 6 - Related Data Allergies Allergy/AdvReac Type Severity Reaction Status Date / Time No Known Allergies Allergy Verified 10/16/18 19:56 Home Meds: Home Meds . 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 History: Reports: None, Musculoskeletal History: Reports: None Neurological History: Reports: None Psychiatric History: Reports: None Endocrine/Metabolic History: Reports: None Hematologic History: Reports: None Immunologic History: Reports: None Oncologic (Cancer) History: Reports: None Dermatologic History: Reports: None - Infectious Disease History Infectious Disease History: Reports: None - Past Surgical History Head Surgeries/Procedures: Reports: None HEENT Surgical History: Reports: Other (See Below), Oral Surgery Social & Family History - Family History Family Medical History: Noncontributory Cardiac: Reports: High Cholesterol, Heart Failure, Hypertension : Reports: Other (See Below) Other Family History: Kidney failure OBGYN: Reports: Endocrine/Metabolic: Reports: Diabetes, type II - Tobacco Use Smoking Status *Q: Never Smoker - Caffeine Use Caffeine Use: Reports: None - Recreational Drug Use Recreational Drug Use: No - Living Situation & Occupation Living situation: Reports: with Significant Other Occupation: Employed ED ROS GENERAL - Review of Systems Review Of Systems: ROS reveals no pertinent complaints other than HPI. ED EXAM, GENERAL - Physical Exam Exam: See Below (see Dictation) Course - Vital Signs Last Recorded V/S: Last Vital Signs Temp 36.7 C 10/16/18 19:57 Pulse 94 10/16/18 19:57 Resp 16 10/16/18 19:57 BP 124/76 10/16/18 19:57 Pulse Ox 100 10/16/18 19:57 - Orders/Labs/Meds Orders: Active Orders 24 hr Category Date Time Status EKG 12 Lead [EKG Documentation Completion] [RC] STAT Care 10/16/18 20:00 Active Departure - Departure Time of Disposition: 21:07 Disposition: Home, Self-Care 01 Condition: Good Clinical Impression: Upper respiratory tract infection Qualifiers: URI type: unspecified URI Qualified Code(s): J06.9 - Acute upper respiratory infection, unspecified Sinusitis Qualifiers: Sinusitis location: unspecified location Chronicity: unspecified Qualified Code (s): J32.9 - Chronic sinusitis, unspecified - Discharge Information Referrals: PCP,None [Primary Care Provider] - Forms: ED Department Discharge Additional Instructions: The following information is given to patients seen in the emergency department who are being discharged to home. This information is to outline your options for follow-up care. We provide all patients seen in our emergency department with a follow-up referral. The need for follow-up, as well as the timing and circumstances, are variable depending upon the specifics of your emergency department visit. If you don't have a primary care physician on staff, we will provide you with a referral. We always advise you to contact your personal physician following an emergency department visit to inform them of the circumstance of the visit and for follow-up with them and/or the need for any referrals to a consulting specialist. The emergency department will also refer you to a specialist when appropriate. This referral assures that you have the opportunity for followup care with a specialist. All of these measure are taken in an effort to provide you with optimal care, which includes your followup. Under all circumstances we always encourage you to contact your private physician who remains a resource for coordinating your care. When calling for followup care, please make the office aware that this follow-up is from your recent emergency room visit. If for any reason you are refused follow-up, please contact the [facility] emergency department at and ask to speak to the emergency department charge nurse. [facility] Primary care- Internal Medicine and Family [address] [address] Push fluids and use [id number] medications as you choose for fever and pain such as Tylenol and ibuprofen. Use iuqi-hkb-[id number] Imelda Claritin or Benadryl for your sinus fluid and congestion. Coolmist humidifier at sleep times. Use all medications as prescribed to you today from the ED and call and schedule follow-up appointment in the clinic in the next few days for reevaluation and further care. Return to ER as needed and as discussed - My Orders Last 24 Hours: My Active Orders 10/16/18 20:00 EKG 12 Lead [EKG Documentation Completion] [RC] STAT - Assessment/Plan Last 24 Hours: My Active Orders 10/16/18 20:00 EKG 12 Lead [EKG Documentation Completion] [RC] STAT
--- NOTE | 2018-10-16 21:03 | CR ---
INDICATION: 2 week history of a cough. TECHNIQUE: Two-view chest. COMPARISON: Single-view chest December 03, 2017. FINDINGS: Clear lungs. Normal heart size and pulmonary vascularity. Normal included skeletal thorax. IMPRESSION: Negative chest. No change other than technique. Dictated by Kenny Bhardwaj MD @ Oct 16 2018 9:00PM Signed by Dr. Kenny Bhardwaj @ Oct 16 2018 9:00PM
[2018-10-16 21:38] VITALS: BP 120/71
== END 2018-10-16 21:38 | disposition home or self-care (01) ==
LOC: MW.ED 19:46
DX: J01.90 Acute sinusitis, unspecified (principal)
CPT/HCPCS: 71046; 71046-26; 87804; 93005; 99283; 99284-25

== ENCOUNTER 2018-11-11 21:24 | Emergency (ER) | payer OTHER ==
[2018-11-11 21:41] VITALS: BP 132/73
--- NOTE | 2018-11-11 21:45 | EDM.PDOC ---
ED HPI GENERAL MEDICAL PROBLEM - General Chief Complaint: Lower Extremity Injury/Pain Stated Complaint: FALL Time Seen by Provider: 11/11/18 21:38 - History of Present Illness INITIAL COMMENTS - FREE TEXT/NARRATIVE: HISTORY AND PHYSICAL: History of present illness: Patient is a 23-year-old female who presents after slipping and falling in a parking lot about 5 hours ago and landing on her left knee. She was holding her child in her right upper extremity when this occurred and he is also being seen here as a patient. Mom says she didn't hit her head pass out or blackout is having pain at her left knee and has not taken anything for the pain. She denies any distal pain at the ankle or foot or any proximal hip pain and has no head neck or back pain and no other complaints. Patient denies . Review of systems: As per history of present illness and below otherwise all systems reviewed and negative. Past medical history: As per history of present illness and as reviewed below otherwise noncontributory. Surgical history: As per history of present illness and as reviewed below otherwise noncontributory. Social history: No reported history of drug or alcohol abuse. Family history: As per history of present illness and as reviewed below otherwise noncontributory. Physical exam: General: Well-developed well-nourished mildly overweight female who is nontoxic and vital signs are noted by me HEENT: Atraumatic, normocephalic, , negative for conjunctival pallor or scleral icterus, mucous membranes moist, throat clear, neck supple, nontender, trachea midline. There is no evidence of any soft tissue injury or defects of the face and there are no midline step-offs in his defects of the cervical spine Lungs: Clear to auscultation, breath sounds equal bilaterally, chest nontender. Heart: S1S2, regular rate and rhythm no overt rhythms Abdomen: Soft, nondistended, nontender. NABS Pelvis: Stable nontender. No lateral hip tenderness on the left Genitourinary: Deferred. Rectal: Deferred. Extremities: Atraumatic, negative for cords or calf pain. There is full range of motion of all extremities without defects or deficits and more specifically at the left knee there is no soft tissue changes such as erythema ecchymosis or soft tissue swelling, no joint effusion, no palpable bony deformities and only minimal tenderness on palpation. The patient can flex and extend at the knee. There is no proximal thigh or distal leg and ankle tenderness defects or deformities Neurovascular unremarkable. Neuro: Awake, alert, oriented. Cranial nerves II through XII unremarkable. Cerebellum unremarkable. Motor and sensory unremarkable throughout. Exam nonfocal. Back there are no midline step-offs in his defects of the thoracic or lumbar spine and no posterior rib tenderness Diagnostics: X-ray left knee Therapeutics: Dileep bandage to left knee Impression: Left knee contusion status post fall Definitive disposition and diagnosis as appropriate pending reevaluation and review of above. left knee Pain Score (Numeric/FACES): 8 - Related Data Allergies Allergy/AdvReac Type Severity Reaction Status Date / Time No Known Allergies Allergy Verified 11/11/18 21:32 Home Meds: Home Meds . 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, Musculoskeletal History: Reports: None Neurological History: Reports: None Psychiatric History: Reports: None Endocrine/Metabolic History: Reports: None Hematologic History: Reports: None Immunologic History: Reports: None Oncologic (Cancer) History: Reports: None Dermatologic History: Reports: None - Infectious Disease History Infectious Disease History: Reports: None - Past Surgical History Head Surgeries/Procedures: Reports: None HEENT Surgical History: Reports: Other (See Below), Oral Surgery Social & Family History - Family History Family Medical History: Noncontributory Cardiac: Reports: High Cholesterol, Heart Failure, Hypertension : Reports: Other (See Below) Other Family History: Kidney failure OBGYN: Reports: Endocrine/Metabolic: Reports: Diabetes, type II - Tobacco Use Smoking Status *Q: Never Smoker - Caffeine Use Caffeine Use: Reports: Coffee - Recreational Drug Use Recreational Drug Use: No - Living Situation & Occupation Living situation: Reports: with Significant Other Occupation: Employed Review of Systems - Review of Systems Review Of Systems: ROS reveals no pertinent complaints other than HPI. ED EXAM, GENERAL - Physical Exam Exam: See Below (See dictation) Course - Vital Signs Last Recorded V/S: Last Vital Signs Temp 36.2 C 11/11/18 21:33 Pulse 92 11/11/18 21:33 Resp 18 11/11/18 21:33 BP 132/73 11/11/18 21:33 Pulse Ox 98 11/11/18 21:33 - Orders/Labs/Meds Orders: Active Orders 24 hr Category Date Time Status Knee 3V Lt [CR] Stat Exams 11/11/18 21:41 Taken DME for Discharge [COMM] Stat Oth 11/11/18 22:48 Ordered Departure - Departure Time of Disposition: 22:49 Disposition: Home, Self-Care 01 Condition: Good Clinical Impression: Contusion of left knee Qualifiers: Encounter type: initial encounter Qualified Code(s): S80.02XA - Contusion of left knee, initial encounter - Discharge Information Instructions: Contusion, [id number] Referrals: PCP,None [Primary Care Provider] - Forms: ED Department Discharge Additional Instructions: The following information is given to patients seen in the emergency department who are being discharged to home. This information is to outline your options for follow-up care. We provide all patients seen in our emergency department with a follow-up referral. The need for follow-up, as well as the timing and circumstances, are variable depending upon the specifics of your emergency department visit. If you don't have a primary care physician on staff, we will provide you with a referral. We always advise you to contact your personal physician following an emergency department visit to inform them of the circumstance of the visit and for follow-up with them and/or the need for any referrals to a consulting specialist. The emergency department will also refer you to a specialist when appropriate. This referral assures that you have the opportunity for followup care with a specialist. All of these measure are taken in an effort to provide you with optimal care, which includes your followup. Under all circumstances we always encourage you to contact your private physician who remains a resource for coordinating your care. When calling for followup care, please make the office aware that this follow-up is from your recent emergency room visit. If for any reason you are refused follow-up, please contact the [facility] emergency department at and ask to speak to the emergency department charge nurse. [facility] Specialty Care--Orthopedic clinic Professional [address] [address] Ice and elevate the knee as much as possible and use Dileep bandage for support and to reduce swelling. Use [id number] ibuprofen or Tylenol for pain. Please call and schedule a follow-up appointment with her orthopedics clinic next week as you choose for follow-up care and return to ER as needed and as discussed - My Orders Last 24 Hours: My Active Orders 11/11/18 21:41 Knee 3V Lt [CR] Stat 11/11/18 22:48 DME for Discharge [COMM] Stat - Assessment/Plan Last 24 Hours: My Active Orders 11/11/18 21:41 Knee 3V Lt [CR] Stat 11/11/18 22:48 DME for Discharge [COMM] Stat
--- NOTE | 2018-11-13 11:17 | CR ---
EXAM DATE: 11/11/18 PATIENT'S AGE: 23 Patient: ORAL BERRIOS Facility: [facility] Site . Site : 1995 Study: XRay-Knee Left -11/11/2018 10:15:05 PM Ordering Physician: Doctor Carpio Final Report: HISTORY: Left knee pain. TECHNIQUE: Three views of the left knee. COMPARISON: No prior. FINDINGS: There is no acute fracture or malalignment. No suprapatellar joint effusion. No joint space narrowing. No radiopaque foreign body or soft tissue gas. IMPRESSION: No acute fracture or malalignment. Dictated by Darrick Alvarado MD @ 11/11/2018 10:35:07 PM Dictated by: Darrick Alvarado MD @ 11/11/2018 22:35:11 Signed by: Darrick Alvarado MD @11/11/2018 10:35:11 PM (Electronic Signature) Report Signed by Proxy. ALESSIA
== END 2018-11-11 23:00 | disposition home or self-care (01) ==
LOC: MW.ED 21:24
DX: S80.02XA Contusion of left knee, initial encounter (principal); W01.0XXA Fall on same level from slipping, tripping and stumbling without subsequent striking against object, initial encounter; Y92.481 Parking lot as the place of occurrence of the external cause
CPT/HCPCS: 73562-26-LT; 73562-LT; 99283; 99283-25